=== PATIENT | female | born 1940 | race Caucasian/White ===

== ENCOUNTER 2016-12-19 08:27 | Inpatient (IN) | payer MEDICAID, MEDICARE, OTHER ==
[~2016-12-19] VITALS: Ht 167.6 cm; Wt 82.1 kg
[2016-12-19 08:30] VITALS: Ht 167.6 cm; Wt 82.1 kg
[2016-12-19] MEDS ORDERED: ASPIRIN 325 MG TAB PO STA (08:45)
[2016-12-19] MEDS ORDERED: SOD CHLORIDE 0.9% 500 ML IV STA (08:45)
[2016-12-19] MEDS ORDERED: DILTIAZEM 25 MG INJ IV ONE (09:00)
[2016-12-19 09:08] VITALS: TEMP 98.5
[2016-12-19] MEDS ORDERED: SOD CHLORIDE 0.9% 1,000 ML IV STA (09:09)
--- NOTE | 2016-12-19 09:26 | RADRPT ---
PROCEDURE: XR Chest. CLINICAL INDICATION: Chest Pain. TECHNIQUE: Single portable view of the chest was obtained. COMPARISON: None. FINDINGS: The heart is moderately enlarged. There is bilateral lower lobe scar and/or discoid atelectasis. No evidence of CHF, consolidation ple ural effusion, or pneumothorax. There are senescent osseous changes. IMPRESSION: 1. Moderately severe cardiomegaly. 2. Bilateral lower lobe scar and/or discoid atelectasis. 3. Senescent osseous changes. Physician Kenneth Date Time Electronically viewed and signed by Nohemi Ly Physician on 12/19/2016 09:26 RR/
[2016-12-19 09:29] LABS: BASOPHILS % 0.5 % (0.0-2.0); EOSINOPHILS # 0.1 10^3/ul (0.0-0.5); EOSINOPHILS % 1.3 % (0.0-7.0); HEMOGLOBIN 10.9 g/dl (12.0-16.0); LYMPHOCYTES % 15.8 % (15.0-51.0); MEAN CORPUSCULAR HEMOGLOBIN 28.2 pg (29.0-33.0); MEAN CORPUSCULAR VOLUME 85.3 fl (82.0-101.0); MEAN PLATELET VOLUME 10.5 fl (7.4-10.4); MONOCYTE # 0.3 10^3/ul (0.3-0.9); MONOCYTES % 4.5 % (0.0-11.0); NEUTROPHIL # 4.9 10^3/ul (1.6-7.5); NEUTROPHILS % 77.6 % (39.0-77.0); PLATELET COUNT 298 10^3/UL (140-415); RED BLOOD COUNT 3.87 10^6/ul (4.20-5.40); RED CELL DISTRIBUTION WIDTH 14.4 % (11.5-14.5); WHITE BLOOD COUNT 6.3 10^3/ul (4.8-10.8)
[2016-12-19 09:39] LABS: INR 1.09; PROTIME 14.1 Sec (12.2-14.2); PT RATIO 1.1
[2016-12-19 09:40] LABS: PARTIAL THROMBOPLASTIN TIME 29.7 Sec (25.0-35.0)
[2016-12-19 09:41] LABS: ANION GAP 12 (8-16); BLOOD UREA NITROGEN 9 mg/dl (7-20); CALCIUM 9.1 mg/dl (8.4-10.2); CARBON DIOXIDE 28 mmol/L (21-31); CHLORIDE 100 mmol/L (97-110); CREATININE 0.68 mg/dl (0.44-1.00); GLUCOSE 184 mg/dl (70-220); POTASSIUM 3.9 mmol/L (3.5-5.1); SODIUM 136 mmol/L (135-144)
[2016-12-19 09:54] LABS: TROPONIN-I < 0.012 ng/ml (0.00-0.12)
[2016-12-19] MEDS ORDERED: IODIXANOL LOCM 100 ML BTL ONE (10:10)
[2016-12-19] MEDS ORDERED: SOD CHLORIDE 0.9% 100 ML ONE (10:10)
[2016-12-19] MEDS ORDERED: AMLO5TAB4 PO (10:28)
[2016-12-19] MEDS ORDERED: GLIP5TAB13 PO (10:29)
[2016-12-19] MEDS ORDERED: BENA40TA41 PO (10:29)
[2016-12-19] MEDS ORDERED: METF-480 PO (10:30)
[2016-12-19] MEDS ORDERED: GABA300C16 PO (10:30)
[2016-12-19] MEDS ORDERED: MELO-216 PO (10:30)
[2016-12-19] MEDS ORDERED: CALC500T91 PO (10:38)
--- NOTE | 2016-12-19 10:44 | RADRPT ---
PROCEDURE: CTA Chest and pulmonary angiogram. CLINICAL INDICATION: Chest pain and lower extremity swelling TECHNIQUE: CT scan of the chest and CT pulmonary angiogram was performed on a multidetector high-r Sponduuolution CT scanner. High-resolution thin slice coronal and sagittal imaging was obtained from the axial source images. 3-D volumetric rendered post processing was performed as well. The patient w as examined following the uncomplicated intravenous administration of 100 cc of Visipaque 320. The i mages were reviewed on a PACS workstation. The total exam CTDI equals 78 mGy, and the total exam DLP equals 626 mGy-cm. One or more of the following dose reduction techniques were used: Automated exposure control. Adjustment of the mA and/or kV according to patient size. Use of iterative reconstruction technique. DICOM images are available. COMPARISON: No priors for comparison. FINDINGS: CT chest: The trachea is midline. Calcification is noted within the left thyroid lobe. No significant axillary lymphadenopathy. No significant mediastinal lymphadenopathy. No gross hilar lymphadenopathy. The aorta demonstrates mild atherosclerotic calcifications. The pulmonary arterial trunk is dilated measuring up to 3.0 cm. No gross evidence of abnormal filling defects within the main pulmonary taylor ry and its segmental branches. Heart size is enlarged. There is trace pericardial effusion. Bilateral ground-glass opacities are scattered throughout both lungs. There is bilateral lower lobe atelectasis and small right pleural effusion. The visualized upper abdominal organs demonstrates mild perihepatic fluid and perisplenic fluid. The re is a small hiatal hernia. The visualized osseous structures demonstrate multilevel degenerative disease of the spine. Chronic compression deformity of T12 is noted. IMPRESSION: 1. No evidence of acute pulmonary emboli. No evidence of aortic aneurysm or dissection. Scattered at herosclerotic disease of the aorta. 2. Cardiomegaly and pulmonary arterial hypertension. 3. Scattered bilateral ground-glass opacities suggestive of mild edema versus air trapping. 4. Bilateral lower lobe atelectasis and small right pleural effusion. 5. 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 6. Small hiatal hernia. RPTAT: AAPP Physician Joe Date Time Electronically viewed and signed by Physician Joe on 12/19/2016 10:44 JL/
[2016-12-19] MEDS ORDERED: SOD CHLORIDE 0.9% 1,000 ML IV SCH (11:17)
--- NOTE | 2016-12-19 11:23 | ERD ---
ER Documentation Chief Complaint Chief Complaint chest "pressure" that radiates to back with bilat leg pain/swellingx 4 days HPI This is a 75-year-old female who presents to the emergency room for evaluation of chest pain, palpitations and mild shortness of breath for the past 4 days. The patient describes her symptoms as being constant in nature with no aggravating or relieving factors. This patient denies any nausea, vomiting, diaphoresis and rates her discomfort as a 2/10 currently ROS All systems reviewed and are negative except as per history of present illness. Medications Home Meds Reported Medications Calcium Carbonate ([id number]) 500 Mg Tablet, 500 MG PO BID, TAB 12/19/16 Meloxicam* (Meloxicam*) 7.5 Mg Tablet, 15 MG PO DAILY, #30 TAB 12/19/16 Metformin* (Glucophage*) 850 Mg Tablet, 850 MG PO WITH MEALS, #90 TAB 12/19/16 Gabapentin* (Gabapentin*) 300 Mg Capsule, 300 MG PO QHS, #60 CAP 12/19/16 Glipizide* (Glipizide*) 5 Mg Tablet, 5 MG PO DAILY, TAB 12/19/16 Benazepril Hcl* (Benazepril Hcl*) 40 Mg Tablet, 40 MG PO DAILY, #30 TAB 12/19/16 Amlodipine Besylate* (Norvasc*) 5 Mg Tablet, 5 MG PO DAILY, TAB 12/19/16 Allergies Allergies: Coded Allergies: No Known Allergy (Verified Allergy, Unknown, 11/01/08) PMhx/Soc Hx Alcohol Use: No Hx Substance Use: No Hx Tobacco Use: No Smoking Status: Never smoker Physical Exam Vitals Vital Signs Date Time Temp Pulse Resp B/P Pulse Ox O2 Delivery O2 Flow Rate FiO2 12/19/16 09:08 98.5 106 18 108/75 96 Room Air 12/19/16 08:30 97.6 125 20 145/78 98 Physical Exam INITIAL VITAL SIGNS: Reviewed by me GENERAL: The patient is well developed and appropriate for usual state of health in no apparent distress HEENT: Pupils equal, round, and reactive to light. EOMI. There is no scleral icterus. NECK: C-spine is soft and supple, there is no meningismus. There is no cervical lymphadenopathy. LUNGS: Clear to auscultation bilaterally. There are no rales, wheezes or rhonchi. HEART: Irregularly irregular rhythm no murmurs, clicks, rubs or gallops. ABDOMEN: Soft, non-tender, non-distended. There are bowel sounds in all four quadrants. No rebound or guarding. EXTREMITIES: There is no peripheral cyanosis or edema. No focal swelling or erythema. NEUROLOGICAL: The patient moves all four extremities with 5/5 strength. Cranial nerves II - XII are intact. Normal gait. Alert and oriented SKIN: There is no apparent rash or petechiae. HEME/LYMPHATIC: There is no evidence of excessive bruising or lymphedema. PSYCHIATRIC: The patient does not appear anxious or depressed. Result Diagram: 12/19/16 0857 12/19/16 0857 Results 24 hrs Laboratory Tests Test 12/19/16 08:57 White Blood Count 6.310^3/ul Red Blood Count 3.8710^6/ul Hemoglobin 10.9g/dl Hematocrit 33.0% Mean Corpuscular Volume 85.3fl Mean Corpuscular Hemoglobin 28.2pg Mean Corpuscular Hemoglobin Concent 33.0g/dl Red Cell Distribution Width 14.4% Platelet Count 83450^3/UL Mean Platelet Volume 10.5fl Neutrophils % 77.6% Lymphocytes % 15.8% Monocytes % 4.5% Eosinophils % 1.3% Basophils % 0.5% Nucleated Red Blood Cells % 0.0/100WBC Neutrophils # 4.910^3/ul Lymphocytes # 1.010^3/ul Monocytes # 0.310^3/ul Eosinophils # 0.110^3/ul Basophils # 0.010^3/ul Nucleated Red Blood Cells # 0.010^3/ul Prothrombin Time 14.1Sec Prothrombin Time Ratio 1.1 INR International Normalized Ratio 1.09 Activated Partial Thromboplast Time 29.7Sec Sodium Level 136mmol/L Potassium Level 3.9mmol/L Chloride Level 100mmol/L Carbon Dioxide Level 28mmol/L Anion Gap 12 Blood Urea Nitrogen 9mg/dl Creatinine 0.68mg/dl Glucose Level 184mg/dl Calcium Level 9.1mg/dl Troponin I < 0.012ng/ml Current Medications Medications (Trade) Dose Ordered Sig/Bk Route PRN Reason Start Time Stop Time Status Last Admin Dose Admin Sodium Chloride (NS) 500 ml @ 500 mls/hr Q1H STAT IV 12/19/16 08:45 12/19/16 10:05 DC 12/19/16 09:07 Aspirin (Aspirin) 325 mg ONCE STAT PO 12/19/16 08:45 12/19/16 08:46 DC 12/19/16 09:08 Diltiazem HCl 10 mg 10 mg ONCE ONCE IV 12/19/16 09:00 12/19/16 09:01 DC 12/19/16 09:08 Sodium Chloride (NS) 1,000 ml @ 1,000 mls/hr Q1H STAT IV 12/19/16 09:09 12/19/16 09:12 DC IV Flush 10 ml 10 ml STK-MED ONCE .ROUTE 12/19/16 10:10 12/19/16 10:11 DC 12/19/16 10:37 Sodium Chloride (NS) 100 ml @ ud STK-MED ONCE .ROUTE 12/19/16 10:10 12/19/16 10:11 DC 12/19/16 10:37 Iodixanol 100 ml 100 ml STK-MED ONCE .ROUTE 12/19/16 10:10 12/19/16 10:11 DC 12/19/16 10:37 Sodium Chloride (NS) 1,000 ml @ 80 mls/hr [id number] IV 12/19/16 11:17 12/19/16 23:46 Ondansetron HCl (Zofran Inj) 4 mg ER BRIDGE PRN IV NAUSEA AND/OR VOMITING 12/19/16 11:30 12/20/16 11:29 Acetaminophen (Tylenol Tab) 650 mg ER BRIDGE PRN PO MILD PAIN/FEVER 12/19/16 11:30 12/20/16 11:29 Procedures/MDM EKG: Rate/Rhythm: A. fib with RVR QRS, ST, T-waves: [No changes consistent w/ acute ischemia] Impression: A. fib with RVR EKG: Rate/Rhythm: Atrial fibrillation QRS, ST, T-waves: [No changes consistent w/ acute ischemia] Impression: Atrial fibrillation Chest X-ray 1V Interpreted by me: Soft Tissue: No acute abnormalities Bones: No acute abnormalities Mediastinum/Cardiac Silhouette/Lungs: [No acute abnormalities] CTA chest with: 1. No evidence of acute pulmonary emboli. No evidence of aortic aneurysm or dissection. Scattered atherosclerotic disease of the aorta. 2. Cardiomegaly and pulmonary arterial hypertension. 3. Scattered bilateral ground-glass opacities suggestive of mild edema versus air trapping. 4. Bilateral lower lobe atelectasis and small right pleural effusion. 5. 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 6. Small hiatal hernia. This is a 75-year-old female presents to the ER for evaluation of palpitations, mild shortness of breath. When I evaluated this patient she was in A. fib with RVR. The patient was not hypoxic, she was hemodynamically stable. The patient underwent lab work and was given 10 mg of Cardizem after a fluid bolus was given which did not resolve her symptoms. This patient has no previous history of atrial fibrillation, she was given aspirin in the emergency room and given her age and her symptoms of atrial fibrillation the patient will be admitted to the telemetry floor at this time under the care of Dr. flannery. After 10 mg Cardizem bolus this patient's heart rate is 69 bpm. Critical Care: Excluding all billable procedures Time: 38 minutes Treatments/Evaluations: Close monitoring and treatment of unstable vital signs, cardiorespiratory, and neurologic status, while maintaining tight balance of fluid, respiratory, and cardiac interventions. Departure Diagnosis: Primary Impression: Atrial fibrillation with RVR Additional Impressions: Chest pain Normocytic anemia Condition: Stable CHRISTEL HURTADO DO Dec 19, 2016 11:23
[2016-12-19] MEDS ORDERED: ACETAMINOPHEN 325 MG TAB PO PRN (11:30)
[2016-12-19] MEDS ORDERED: ONDANSETRON 4 MG INJ IV PRN (11:30)
[2016-12-19] MEDS ORDERED: FUROSEMIDE 20 MG INJ IV ONE (12:00)
[2016-12-19] MEDS ORDERED: NACL 0.9% 3 ML SYG IV SCH (12:00)
[2016-12-19] MEDS: METOPROLOL 25 MG TAB PO SCH ×2 (12:56→20:11)
[2016-12-19 14:46] VITALS: BMI 29.2
[2016-12-19 14:48] VITALS: BP 115/66; PULSE 60; RESP 18
[2016-12-19 15:57] LABS: CREATINE KINASE 45 IU/L (23-200)
[2016-12-19 16:00] VITALS: PULSE 96
[2016-12-19] MEDS ORDERED: HYDROCODONE/APAP (5/325) TAB PO PRN (16:00)
[2016-12-19 16:10] LABS: CK-MB 1.42 ng/ml (0.0-2.4)
[2016-12-19 16:11] LABS: TROPONIN-I < 0.012 ng/ml (0.00-0.12)
[2016-12-19 16:21] VITALS: BP 123/80; PULSE 97; RESP 18
--- NOTE | 2016-12-19 17:26 | HP ---
Date/Time of Note Date/Time of Note DATE: 12/19/16 TIME: 17:20 Assessment/Plan VTE Prophylaxis VTE Prophylaxis Intervention: other Lines/Catheters IV [facility] Peripheral IV Urinary Cath still in place: No Assessment/Plan Chief Complaint/Hosp Course 75 yo femlae wtih hypertension and DMII who presents with new onset Atrial Fibrillation and acute decompensated CHF Acute decompensated CHF: - Start diuresis w lasix IV 20 BID - TTE - Start beta mu A Fib: - Rate reasonably controlled, continue metropolol - Rates will come down w diuresis and relief of pulmonary congestion - Start Xarelto Telemetry monitoring Problems: HPI/ROS Admit Date/Time Admit Date/Time Dec 19, 2016 at 11:19 Hx of Present Illness 75 yo female with h/o hypertension and mild DMII who presents wiht a few days of progressive chest tighteness, abdominal bloating, SOB. No fevers, chills or night sweats. Does not have any exertional chest pain, does have some mild chest "tightness" that is constant. In ED, found to be in A Fib with HR 120s, given IV diltiazem and fluids PMH/Family/Social Past Medical History Medical History: high cholesterol, hypertension Past Surgical History Past Surgical Hx: no surgical history Social History Alcohol Use: none Smoking Status: Never smoker Drug Use: none Exam/Review of Systems Vital Signs Vitals Vital Signs Date Time Temp Pulse Resp B/P Pulse Ox O2 Delivery O2 Flow Rate FiO2 12/19/16 16:21 98.2 97 18 123/80 95 Room Air Exam Exam +++ JVD Clear lungs, comfortable respiratory status Constitutional: alert, oriented, well developed Psych: nl mood/affect, no complaints Head: atraumatic, normocephalic Eyes: EOMI, PERRL, nl conjunctiva, nl lids, nl sclera ENMT: nl external ears & nose, nl lips & teeth, nl nasal mucosa & septum Neck: non-tender, supple Respiratory: clear to auscultation, normal air movement Cardiovascular: nl pulses, regular rate and rhythm Gastrointestinal: nl liver, spleen, non-tender, soft Musculoskeletal: nl extremities to inspection Extremities: normal pulses Neurological: [employer] II-XII intact, nl mental status, nl speech, nl strength Skin: nl turgor, No rash or lesions Lymph: nl lymph nodes Labs Result Diagram: 12/19/16 0857 12/19/16 0857 Medications Medications Current Medications Metoprolol Tartrate (Lopressor) 25 mg BID PO Last administered on 12/19/16t 12 :56; Admin Dose 25 MG; Start 12/19/16 at 12:00 Acetaminophen/ Hydrocodone Bitart ([place] (5/325)) 1 tab Q6H PRN PO PAIN 4-6; Start 12/19/16 at 16:00 CRISTOBAL DYKES MD Dec 19, 2016 17:26
[2016-12-19] MEDS: FUROSEMIDE 20 MG INJ IV SCH (18:28)
[2016-12-19] MEDS: RIVAROXABAN 20 MG TABLET PO SCH (19:21)
[2016-12-19 20:09] VITALS: BP 128/77; PULSE 108; RESP 18
[2016-12-19 21:40] LABS: CREATINE KINASE 45 IU/L (23-200)
[2016-12-19 21:54] LABS: CK-MB 1.39 ng/ml (0.0-2.4); TROPONIN-I < 0.012 ng/ml (0.00-0.12)
[2016-12-19 23:41] VITALS: BP 135/78; RESP 18
[2016-12-20] VITALS (11 sets, daily range): BP systolic 122–137; BP diastolic 71–88; PULSE 61–121; RESP 18–19
[2016-12-20] MEDS: FUROSEMIDE 20 MG INJ IV SCH ×2 (05:34→16:06)
[2016-12-20 07:39] LABS: BASOPHILS % 0.7 % (0.0-2.0); EOSINOPHILS # 0.1 10^3/ul (0.0-0.5); EOSINOPHILS % 2.1 % (0.0-7.0); HEMATOCRIT 33.1 % (37.0-47.0); LYMPHOCYTES # 1.2 10^3/ul (0.8-2.9); LYMPHOCYTES % 22.6 % (15.0-51.0); MEAN CORPUSCULAR HEMOGLOBIN 28.6 pg (29.0-33.0); MEAN CORPUSCULAR HGB CONC 33.2 g/dl (32.0-37.0); MEAN PLATELET VOLUME 10.6 fl (7.4-10.4); MONOCYTE # 0.4 10^3/ul (0.3-0.9); MONOCYTES % 7.1 % (0.0-11.0); NEUTROPHIL # 3.6 10^3/ul (1.6-7.5); NEUTROPHILS % 67.1 % (39.0-77.0); PLATELET COUNT 302 10^3/UL (140-415); RED BLOOD COUNT 3.85 10^6/ul (4.20-5.40); RED CELL DISTRIBUTION WIDTH 14.2 % (11.5-14.5); WHITE BLOOD COUNT 5.4 10^3/ul (4.8-10.8)
[2016-12-20] MEDS: METOPROLOL 25 MG TAB PO SCH (07:53)
[2016-12-20 08:04] LABS: ALBUMIN 3.7 g/dl (3.3-4.9); ALBUMIN/GLOBULIN RATIO 1.15; BILIRUBIN,INDIRECT 0.2 mg/dl (0-1.1); BILIRUBIN,TOTAL 0.2 mg/dl (0.2-1.3); CALCIUM 8.9 mg/dl (8.4-10.2); CHOL/HDL RATIO 2.6 RATIO; CREATININE 0.83 mg/dl (0.44-1.00); POTASSIUM 4.1 mmol/L (3.5-5.1); TOTAL PROTEIN 6.9 g/dl (6.1-8.1)
[2016-12-20] MEDS ORDERED: GLUCOSE GEL 15 GRAM TUBE PO PRN ×2 (10:00)
[2016-12-20] MEDS ORDERED: DEXTROSE 50% 50 ML SYRINGE IV PRN ×2 (10:00)
[2016-12-20] MEDS ORDERED: GLUCAGON 1 MG INJ IM PRN (10:00)
[2016-12-20] MEDS ORDERED: GLUCOSE GEL 15 GRAM TUBE BUCCAL PRN (10:00)
[2016-12-20] MEDS ORDERED: METOPROLOL 25 MG TAB PO STA (10:48)
[2016-12-20 11:32] LABS: T3 UPTAKE 40.5 % (23.5-40.5)
[2016-12-20] MEDS: INSULIN ASPART [NOVOLOG] 3 ML PEN SC SCH ×5 (11:35→21:00)
--- NOTE | 2016-12-20 14:33 | RADRPT ---
Echocardiogram Report Patient Name: LASHAWN DAVE Gender: Female Date: 1940 Study Date: 19-Dec-2016 Manager Environmental Health: Pao Benítez RDCS Location: [facility] Ref. Physician: CRISTOBAL DYKES Quality: Adequate Procedures: Transthoracic echocardiogram with complete 2D, M-Mode, and doppler examination. Indications: Atrial Fibrillation. Congestive Heart Failure. 2D/M Mode Doppler Measurement Value Normal Ranges Measurement Value Normal Ranges LVIDd 2D 5.2 3.5 - 5.6 cm AV Peak Cj 1.5 m/sec LVIDs 2D 2.7 2.1 - 4.1 cm AV Peak PG 9.5 mmHg LVPWd 2D 1.2 0.6 - 1.1 cm TR Peak Cj 3.4 m/sec IVSd 2D 1.0 0.6 - 1.1 cm TR Peak PG 46.0 mmHg AoR Diam 2D 2.7 2.0 - 3.7 cm RVSP 61.0 mmHg EDV 2D 130.3 cm3 ESV 2D 19.3 cm3 LA Dimen 2D 4.5 2.3 - 4.0 cm Findings Left Ventricle: Lower limits of normal systolic function. Normal left ventricular cavity size. Mild concentric left ventricular hypertrophy. Ejection fraction is visually estimated at 50 %. Tissue Doppler/Mitral Doppler indices are indeterminate in this study due to the presence of atrial fibrillation. Right Ventricle: Normal right ventricular size. Normal right ventricular systolic function. Left Atrium: There is moderate enlargement of left atrium. Right Atrium: There is moderate enlargement of right atrium. Atrial Septum: Thin and hypermobile atrial septum. Mitral Valve: Moderate mitral leaflet calcification. Mild mitral annular calcification. Mild mitral valve regurgitation. Aortic Valve: No significant aortic stenosis or insufficiency. Aortic cusps appear mildly calcified. Tricuspid Valve: Normal appearance of the tricuspid valve. Estimated peak PA systolic pressure 61 mmHg. There is moderate tricuspid regurgitation. Pulmonic Valve: Pulmonic valve not well visualized. Pericardium: Trivial pericardial effusion. Aorta: Normal aortic root. IVC: Dilated IVC without respiratory collapse consistent with elevated right atrial pressure. Conclusions 1.Lower limits of normal systolic function. Normal left ventricular cavity size. Mild concentric left ventricular hypertrophy. Ejection fraction is visually estimated at 50 %. Tissue Doppler/Mitral Doppler indices are indeterminate in this study due to the presence of atrial fibrillation. 2.There is moderate enlargement of left atrium. 3.There is moderate enlargement of right atrium. 4.Moderate mitral leaflet calcification. Mild mitral annular calcification. Mild mitral valve regurgitation. 5.Normal appearance of the tricuspid valve. Estimated peak PA systolic pressure 61 mmHg. There is moderate tricuspid regurgitation. 6.Trivial to small pericardial effusion. Electronically Signed By: Margarito Malloy 20-Dec-2016 14:33:11 -0800 Patient Name: LASHAWN DAVE Study Date: 19-Dec-2016 [id number]
--- NOTE | 2016-12-20 15:11 | PN ---
Date/Time of Note Date/Time of Note DATE: 12/20/16 TIME: 15:07 Assessment/Plan VTE Prophylaxis VTE Prophylaxis Intervention: other Lines/Catheters IV Catheter Type (from Nrs): Saline Lock Urinary Cath still in place: No Assessment/Plan Chief Complaint/Hosp Course 75 yo femlae wtih hypertension and DMII who presents with new onset Atrial Fibrillation and acute decompensated CHF Acute decompensated diastolic CHF: - Continue diuresis w lasix IV 20 BID - On TTE has normal EF, biatrial enlargement A Fib: - Rate reasonably controlled but will increase metropolol to 50 BID from 25 BID - Rates should come down w diuresis and relief of pulmonary congestion - AC w Xarelto DMII with hyperglycemia: - Started on basal/bolus insulin therapy Telemetry monitoring Problems: Subjective 24 Hr Interval Summary Free Text/Dictation Very good diuresis Feeling a lot better today she says Still hypervolemic though HR 90-110 generally on telemetry Exam/Review of Systems Vital Signs Vitals Vital Signs Date Time Temp Pulse Resp B/P Pulse Ox O2 Delivery O2 Flow Rate FiO2 12/20/16 12:14 98 12/20/16 11:45 97.7 18 123/80 95 12/19/16 20:09 Room Air Intake and Output 12/19/16 12/19/16 12/20/16 15:00 23:00 07:00 Intake Total 350 ml 100 ml Balance 350 ml 100 ml Exam ++ JVD Results Result Diagram: 12/20/1627 12/20/16 0628 Results 24 hrs Laboratory Tests Test 12/19/16 15:19 12/19/16 20:58 12/20/16 06:27 12/20/16 06:28 Creatine Kinase 45 45 Creatine Kinase Index 3.2 3.1 Creatinine Kinase MB (Mass) 1.42 1.39 Troponin I < 0.012 < 0.012 White Blood Count 5.4 Red Blood Count 3.85 L Hemoglobin 11.0 L Hematocrit 33.1 L Mean Corpuscular Volume 86.0 Mean Corpuscular Hemoglobin 28.6 L Mean Corpuscular Hemoglobin Concent 33.2 Red Cell Distribution Width 14.2 Platelet Count 302 Mean Platelet Volume 10.6 H Neutrophils % 67.1 Lymphocytes % 22.6 Monocytes % 7.1 Eosinophils % 2.1 Basophils % 0.7 Nucleated Red Blood Cells % 0.0 Neutrophils # 3.6 Lymphocytes # 1.2 Monocytes # 0.4 Eosinophils # 0.1 Basophils # 0.0 Nucleated Red Blood Cells # 0.0 Hemoglobin A1c 8.6 H Sodium Level 137 Potassium Level 4.1 Chloride Level 97 Carbon Dioxide Level 30 Anion Gap 14 Blood Urea Nitrogen 11 Creatinine 0.83 Glucose Level 197 Calcium Level 8.9 Total Bilirubin 0.2 Direct Bilirubin 0.00 Indirect Bilirubin 0.2 Aspartate Amino Transf (AST/SGOT) 22 Alanine Aminotransferase (ALT/SGPT) 29 Alkaline Phosphatase 77 Total Protein 6.9 Albumin 3.7 Globulin 3.20 Albumin/Globulin Ratio 1.15 Triglycerides Level 74 Cholesterol Level 102 LDL Cholesterol, Calculated 49 HDL Cholesterol 38 Cholesterol/HDL Ratio 2.6 Free Thyroxine Index 4.33 H Thyroxine (T4) 10.7 Triiodothyronine (T3) Uptake 40.5 Test 12/20/16 11:32 Bedside Glucose 251 H Medications Medications Current Medications Acetaminophen/ Hydrocodone Bitart ([place] (5/325)) 1 tab Q6H PRN PO PAIN 4-6; Start 12/19/16 at 16:00 Insulin Glargine (Lantus) 12 unit DAILY@08 SC ; Start 12/21/16 at 08:00 Diagnostic Test (Pha) (Accu-Chek) 1 ea 02 XX ; Start 12/21/16 at 02:00 Miscellaneous Information 1 ea NOTE XX ; Start 12/20/16 at 10:00 Glucose (Glutose) 15 gm Q15M PRN PO DECREASED GLUCOSE; Start 12/20/16 at 10:00 Glucose (Glutose) 22.5 gm Q15M PRN PO DECREASED GLUCOSE; Start 12/20/16 at 10: 00 Dextrose (D50w Syringe) 25 ml Q15M PRN IV DECREASED GLUCOSE; Start 12/20/16 at 10:00 Dextrose (D50w Syringe) 50 ml Q15M PRN IV DECREASED GLUCOSE; Start 12/20/16 at 10:00 Glucagon (Glucagen) 1 mg Q15M PRN IM DECREASED GLUCOSE; Start 12/20/16 at 10: 00 Glucose (Glutose) 15 gm Q15M PRN BUCCAL DECREASED GLUCOSE; Start 12/20/16 at 10:00 Metoprolol Tartrate (Lopressor) 50 mg BID PO ; Start 12/20/16 at 21:00 CRISTOBAL DYKES MD Dec 20, 2016 15:11
[2016-12-20] MEDS: RIVAROXABAN 20 MG TABLET PO SCH (16:06)
[2016-12-20] MEDS: METOPROLOL 50 MG TAB PO SCH (21:38)
[2016-12-21] VITALS (8 sets, daily range): BP systolic 118–139; BP diastolic 66–74; PULSE 82–101; RESP 18–19
[2016-12-21] MEDS ORDERED: ACCU-CHEK XX SCH ×2 (02:00)
[2016-12-21] MEDS: FUROSEMIDE 20 MG INJ IV SCH (05:39)
[2016-12-21] MEDS ORDERED: INSULIN GLARGINE [LANtus] 3 ML PEN SC SCH (08:00)
[2016-12-21 08:40] LABS: BASOPHILS % 0.6 % (0.0-2.0); EOSINOPHILS # 0.1 10^3/ul (0.0-0.5); EOSINOPHILS % 1.9 % (0.0-7.0); HEMATOCRIT 33.3 % (37.0-47.0); HEMOGLOBIN 11.1 g/dl (12.0-16.0); LYMPHOCYTES # 1.1 10^3/ul (0.8-2.9); LYMPHOCYTES % 21.7 % (15.0-51.0); MEAN CORPUSCULAR HEMOGLOBIN 28.1 pg (29.0-33.0); MEAN CORPUSCULAR HGB CONC 33.3 g/dl (32.0-37.0); MEAN CORPUSCULAR VOLUME 84.3 fl (82.0-101.0); MEAN PLATELET VOLUME 10.3 fl (7.4-10.4); MONOCYTE # 0.3 10^3/ul (0.3-0.9); MONOCYTES % 5.4 % (0.0-11.0); NEUTROPHIL # 3.7 10^3/ul (1.6-7.5); NEUTROPHILS % 70.2 % (39.0-77.0); PLATELET COUNT 308 10^3/UL (140-415); RED BLOOD COUNT 3.95 10^6/ul (4.20-5.40); RED CELL DISTRIBUTION WIDTH 13.6 % (11.5-14.5); WHITE BLOOD COUNT 5.2 10^3/ul (4.8-10.8)
[2016-12-21] MEDS: INSULIN ASPART [NOVOLOG] 3 ML PEN SC SCH ×2 (08:45)
[2016-12-21] MEDS: METOPROLOL 50 MG TAB PO SCH (08:55)
[2016-12-21 09:04] LABS: ALBUMIN 3.9 g/dl (3.3-4.9); ALBUMIN/GLOBULIN RATIO 1.11; BILIRUBIN,INDIRECT 0.3 mg/dl (0-1.1); BILIRUBIN,TOTAL 0.3 mg/dl (0.2-1.3); CREATININE 0.73 mg/dl (0.44-1.00); POTASSIUM 3.5 mmol/L (3.5-5.1); TOTAL PROTEIN 7.4 g/dl (6.1-8.1)
[2016-12-21] MEDS ORDERED: RIVA20TA PO (12:07)
[2016-12-21] MEDS ORDERED: METO-336 PO (12:07)
[2016-12-21] MEDS ORDERED: FURO20TA3 PO ×2 (12:08→12:17)
--- NOTE | 2016-12-21 12:13 | PDOCDIS ---
Discharge Instructions DIAGNOSIS Discharge Diagnosis Atrial fibrillation Congestive heart failure CONDITION Patient Condition: Good HOME CARE INSTRUCTIONS: Diet Instructions: Reduced Sodium FOLLOW UP/APPOINTMENTS Follow-up Plan Usted se lacy sido diagnosticado con dos condiciones: fibrilacion auricular y insuficiencia cardiaca. Es muy importante allie medicamento para prevenir coagulos de isaiah que se llama Xarelto Tambien es muy importante allie un diuretico para prevenir fluido en natalio pulmones Black doctor tiene que checar natalio laboratorios en la semana que viene. Temo josé miguel reginaldo con el Regresa al hospital si tiene falta de aire o cualquier otra simtoma CRISTOBAL DYKES MD Dec 21, 2016 12:13
--- NOTE | 2016-12-21 12:22 | DS ---
Date/Time of Note Date/Time of Note DATE: 12/21/16 TIME: 12:17 Discharge Summary Admission/Discharge Info Admit Date/Time Dec 19, 2016 at 11:19 Discharge Date/Time Discharge Diagnosis Atrial fibrillation Congestive heart failure Patient Condition: Good Hx of Present Illness 75 yo female with h/o hypertension and mild DMII who presents wiht a few days of progressive chest tighteness, abdominal bloating, SOB. No fevers, chills or night sweats. Does not have any exertional chest pain, does have some mild chest "tightness" that is constant. In ED, found to be in A Fib with HR 120s, given IV diltiazem and fluids Hospital Course 75 yo femlae wtih hypertension and DMII who presents with new onset Atrial Fibrillation and acute decompensated CHF Acute decompensated diastolic CHF: - Continue diuresis w lasix IV 20 BID - On TTE has normal EF, biatrial enlargement A Fib: - Rate reasonably controlled but will increase metropolol to 50 BID from 25 BID - Rates should come down w diuresis and relief of pulmonary congestion - AC w Xarelto DMII with hyperglycemia: - Started on basal/bolus insulin therapy Telemetry monitoring Patient presented in Atrial fibrillation with mildly elevated heart rates and mild CHF exacerbation. She was prescribed metroprolol for rate control, which was adequate. She underwent CT-A which was negative for PE but did show pulmonary edema. She underwent 2 days of diuresis with IV lasix to euvolemia and was breathing normally at time of discharge. TTE was performed showing normal EF, enlarged atria bilaterally. She was started on Xarelto for anticoagulation. She was discharged on 20 mg of PO lasix daily, which close instructions to monitor her weights and to check in with her primary care Dr Harris Hodge next week, whom I spoke with by phone and conveyed the details of the patient's admission. Home Meds Active Scripts Furosemide* (Furosemide*) 20 Mg Tablet, 20 MG PO DAILY, #60 TAB Prov:CRISTOBAL DYKES MD 12/21/16 Metoprolol Succinate* (Toprol XL*) 100 Mg Tab.sr.24h, 100 MG PO DAILY, #30 TAB Prov:MILGRCRISTOBAL OCAMPO MD 12/21/16 Rivaroxaban* (Xarelto*) 20 Mg Tablet, 20 MG PO WITH DINNER for 60 Days, #60 TAB 5 Refills Prov:MILGROM,CRISTOBAL K MD 12/21/16 Reported Medications Calcium Carbonate ([id number]) 500 Mg Tablet, 500 MG PO BID, TAB 12/19/16 Metformin* (Glucophage*) 850 Mg Tablet, 850 MG PO WITH MEALS, #90 TAB 12/19/16 Glipizide* (Glipizide*) 5 Mg Tablet, 5 MG PO DAILY, TAB 12/19/16 Benazepril Hcl* (Benazepril Hcl*) 40 Mg Tablet, 40 MG PO DAILY, #30 TAB 12/19/16 Discontinued Reported Medications Meloxicam* (Meloxicam*) 7.5 Mg Tablet, 15 MG PO DAILY, #30 TAB 12/19/16 Gabapentin* (Gabapentin*) 300 Mg Capsule, 300 MG PO QHS, #60 CAP 12/19/16 Amlodipine Besylate* (Norvasc*) 5 Mg Tablet, 5 MG PO DAILY, TAB 12/19/16 Follow-up Plan Usted se lacy sido diagnosticado con dos condiciones: fibrilacion auricular y insuficiencia cardiaca. Es muy importante allie medicamento para prevenir coagulos de isaiah que se llama Xarelto Tambien es muy importante allie un diuretico para prevenir fluido en natalio pulmones Black doctor tiene que checar natalio laboratorios en la semana que viene. Temo josé miguel reginaldo con el Regresa al hospital si tiene falta de aire o cualquier otra simtoma Primary Care Provider Donald Hodge Pending Labs Laboratory Tests Test 12/20/16 16:46 12/20/16 21:36 12/21/16 08:08 12/21/16 08:41 Bedside Glucose 108mg/dL (70-220) 102mg/dL (70-220) 189mg/dL (70-220) White Blood Count 5.210^3/ul (4.8-10.8) Red Blood Count 3.9510^6/ul (4.20-5.40) Hemoglobin 11.1g/dl (12.0-16.0) Hematocrit 33.3% (37.0-47.0) Mean Corpuscular Volume 84.3fl (82.0-101.0) Mean Corpuscular Hemoglobin 28.1pg (29.0-33.0) Mean Corpuscular Hemoglobin Concent 33.3g/dl (32.0-37.0) Red Cell Distribution Width 13.6% (11.5-14.5) Platelet Count 02505^3/UL (140-415) Mean Platelet Volume 10.3fl (7.4-10.4) Neutrophils % 70.2% (39.0-77.0) Lymphocytes % 21.7% (15.0-51.0) Monocytes % 5.4% (0.0-11.0) Eosinophils % 1.9% (0.0-7.0) Basophils % 0.6% (0.0-2.0) Nucleated Red Blood Cells % 0.0/100WBC (0.0-0.0) Neutrophils # 3.710^3/ul (1.6-7.5) Lymphocytes # 1.110^3/ul (0.8-2.9) Monocytes # 0.310^3/ul (0.3-0.9) Eosinophils # 0.110^3/ul (0.0-0.5) Basophils # 0.010^3/ul (0.0-0.1) Nucleated Red Blood Cells # 0.010^3/ul (0.0-0.0) Sodium Level 135mmol/L (135-144) Potassium Level 3.5mmol/L (3.5-5.1) Chloride Level 95mmol/L (97-110) Carbon Dioxide Level 27mmol/L (21-31) Anion Gap 17 (8-16) Blood Urea Nitrogen 12mg/dl (7-20) Creatinine 0.73mg/dl (0.44-1.00) Glucose Level 181mg/dl (70-220) Calcium Level 9.0mg/dl (8.4-10.2) Total Bilirubin 0.3mg/dl (0.2-1.3) Direct Bilirubin 0.00mg/dl (0.00-0.20) Indirect Bilirubin 0.3mg/dl (0-1.1) Aspartate Amino Transf (AST/SGOT) 27IU/L (15-46) Alanine Aminotransferase (ALT/SGPT) 29IU/L (13-69) Alkaline Phosphatase 81IU/L (42-121) Total Protein 7.4g/dl (6.1-8.1) Albumin 3.9g/dl (3.3-4.9) Globulin 3.50g/dl (1.3-3.2) Albumin/Globulin Ratio 1.11 CRISTOBAL DYKES MD Dec 21, 2016 12:22
== END 2016-12-21 14:32 | disposition home or self-care (01) | DRG 308 ==
LOC: E/R 08:27 → MS3 11:19 → MS4 22:15
PROVIDERS: ADMIT Internal Medicine; ATTEND Internal Medicine
DX: I48.91 Unspecified atrial fibrillation (principal); I50.33 Acute on chronic diastolic (congestive) heart failure; E13.65 Other specified diabetes mellitus with hyperglycemia; D64.9 Anemia, unspecified; I11.0 Hypertensive heart disease with heart failure
CPT/HCPCS: 36415; 71010; 71275; 80048; 80053; 80061; 82550; 82553; 82962; 83036; 84436; 84479; 84484; 85025; 85610; 85730; 93005; 93306; 96374; 96375; J1940; J1815; J7030; J7040; Q9967

== ENCOUNTER 2016-12-24 06:27 | Emergency (ER) | payer OTHER ==
[~2016-12-24] VITALS: Ht 154.9 cm; Wt 82.0 kg
[~2016-12-24 06:27] MED LIST: BENA40TA41 PO; CALC500T91 PO; FURO20TA3 PO; GLIP5TAB13 PO; METF-480 PO; METO-336 PO; RIVA20TA PO
[2016-12-24 06:28] VITALS: Ht 154.9 cm; Wt 82.0 kg
[2016-12-24] MEDS ORDERED: OFLO5DRO7 RIGHT EAR (06:53)
--- NOTE | 2016-12-24 07:00 | ERD ---
ER Documentation Chief Complaint Chief Complaint right ear bleeding;denies pain;able to hear; denies headeache and dizziness HPI 76-year-old female, history of atrial fibrillation comes to emergency department with right-sided ear bleeding that occurred spontaneously this morning while she was preparing food at home. Patient states that she is on Xarelto for atrial fibrillation was concerned because of the bleeding. She had a small pole of blood occurred, without any trauma, headache, nausea, dizziness , fevers or chills, otorrhea, ear pain. She states that she has a little bit of difficulty hearing at this time from the right ear only. ROS All systems reviewed and are negative except as per history of present illness. Medications Home Meds Active Scripts Ofloxacin Otic (Ofloxacin Otic) 5 Ml Drops, 5 DROP RIGHT EAR BID for 7 Days, #1 BOTTLE Prov:KRANTHI BARNETT PA-C 12/24/16 Furosemide* (Furosemide*) 20 Mg Tablet, 20 MG PO DAILY, #60 TAB Prov:CRISTOBAL DYKES MD 12/21/16 Metoprolol Succinate* (Toprol XL*) 100 Mg Tab.sr.24h, 100 MG PO DAILY, #30 TAB Prov:CRISTOBAL DYKES MD 12/21/16 Rivaroxaban* (Xarelto*) 20 Mg Tablet, 20 MG PO WITH DINNER for 60 Days, #60 TAB 5 Refills Prov:CRISTOBAL DYKES MD 12/21/16 Reported Medications Calcium Carbonate ([id number]) 500 Mg Tablet, 500 MG PO BID, TAB 12/19/16 Metformin* (Glucophage*) 850 Mg Tablet, 850 MG PO WITH MEALS, #90 TAB 12/19/16 Glipizide* (Glipizide*) 5 Mg Tablet, 5 MG PO DAILY, TAB 12/19/16 Benazepril Hcl* (Benazepril Hcl*) 40 Mg Tablet, 40 MG PO DAILY, #30 TAB 12/19/16 Discontinued Reported Medications Meloxicam* (Meloxicam*) 7.5 Mg Tablet, 15 MG PO DAILY, #30 TAB 12/19/16 Gabapentin* (Gabapentin*) 300 Mg Capsule, 300 MG PO QHS, #60 CAP 12/19/16 Amlodipine Besylate* (Norvasc*) 5 Mg Tablet, 5 MG PO DAILY, TAB 12/19/16 Allergies Allergies: Coded Allergies: No Known Allergy (Verified Allergy, Unknown, 11/01/08) PMhx/Soc History of Surgery: No Anesthesia Reaction: No Hx Neurological Disorder: No Hx Respiratory Disorders: No Hx Cardiac Disorders: Yes (afib) Hx Psychiatric Problems: No Hx Miscellaneous Medical Probl: Yes (DM) Hx Alcohol Use: No Hx Substance Use: No Hx Tobacco Use: No Smoking Status: Never smoker Physical Exam Vitals Vital Signs Date Time Temp Pulse Resp B/P Pulse Ox O2 Delivery O2 Flow Rate FiO2 12/24/16 06:28 98.6 120 19 146/75 100 Physical Exam General: Well-developed, well-nourished. The patient appears in no acute distress. HEENT: Head is normocephalic, atraumatic. No scleral icterus. Rupture of the TM, there is a small amount of blood in the ear canal, there is no active hemorrhage, no foreign body, no otorrhea, no discharge. Left ear is normal. Neck: Supple. Nontender. Lungs: Clear to auscultation. Normal air movement. Heart: Regular rate and rhythm. S1 and S2 are normal. No murmurs, gallops, or rubs. Abdomen: Nondistended. Extremities: No clubbing or cyanosis. Moving extremities x 4. No weakness. Neurologic: Alert and oriented 3. No focal deficits. Normal speech and gait. Skin: Normal turgor. No rash or lesions. Procedures/MDM 76-year-old female presents with right-sided spontaneous tympanic membrane perforation. There is no evidence of foreign body, infection, but she will be covered with otic drops. She is to follow-up with the ENT, she has an appointment with her PCP this Sunday of asked her to speak with them, she will be given information to Dr. Nair's office. I reviewed the case with my attending physician Dr. Lancaster who agrees with the plan. Patient's blood pressure was elevated (>120/80) but appears stable without evidence of hypertension emergency or urgency. The patient was counseled about the risks of hypertension and urged to pursue outpatient monitoring and therapy within a week with their primary care physician. Departure Diagnosis: Primary Impression: Tympanic membrane rupture Condition: Good Patient Instructions: Eardrum Rupture (Perforation) Referrals: FAMILIA NAIR MD Additional Instructions: ENT Specialist:Roberto grant josé miguel condicin mdica que requiere que cesario a un especialista dentro de los prximos 4-5 BRIDGES .POR FAVOR,CON [place] SEGUIMIENTO DE PRIMARIA PHSICIAN refferal. SI USTED NO TIENE UN MDICO GENERAL Y / O USTED NO PUEDE PAGAR umu a un mdico,los siguientes eli RECURSOS sido suministrado a usted. ES [place] RESPONSABILIDAD PARA SER VISTOS POR EL ESPECIALISTA: KRANTHI BARNETT PA-C Dec 24, 2016 07:00
== END 2016-12-24 07:15 | disposition home or self-care (01) ==
LOC: FTE 06:27
DX: H72.91 Unspecified perforation of tympanic membrane, right ear (principal); E11.9 Type 2 diabetes mellitus without complications; Z79.84 Long term (current) use of oral hypoglycemic drugs
CPT/HCPCS: 99283

== ENCOUNTER 2017-01-23 12:45 | Inpatient (IN) | payer OTHER ==
[~2017-01-23] VITALS: Ht 162.6 cm; Wt 85.4 kg
[~2017-01-23 12:45] MED LIST changes: +OFLO5DRO7 RIGHT EAR; -RIVA20TA PO; +RIVA20TA5 PO
[2017-01-23] MEDS ORDERED: ASPIRIN 325 MG TAB PO STA (13:07)
[2017-01-23 13:22] LABS: BASOPHIL # 0.1 10^3/ul (0.0-0.1); BASOPHILS % 0.8 % (0.0-2.0); EOSINOPHILS % 0.3 % (0.0-7.0); HEMOGLOBIN 10.4 g/dl (12.0-16.0); LYMPHOCYTES # 1.1 10^3/ul (0.8-2.9); LYMPHOCYTES % 18.2 % (15.0-51.0); MEAN CORPUSCULAR HEMOGLOBIN 27.2 pg (29.0-33.0); MEAN CORPUSCULAR HGB CONC 33.5 g/dl (32.0-37.0); MEAN CORPUSCULAR VOLUME 81.2 fl (82.0-101.0); MEAN PLATELET VOLUME 9.7 fl (7.4-10.4); MONOCYTE # 0.5 10^3/ul (0.3-0.9); MONOCYTES % 7.5 % (0.0-11.0); NEUTROPHIL # 4.4 10^3/ul (1.6-7.5); NEUTROPHILS % 72.9 % (39.0-77.0); PLATELET COUNT 336 10^3/UL (140-415); RED BLOOD COUNT 3.82 10^6/ul (4.20-5.40); RED CELL DISTRIBUTION WIDTH 13.5 % (11.5-14.5)
[2017-01-23] MEDS ORDERED: DILTIAZEM 25 MG INJ IV ONE (13:30)
[2017-01-23 13:40] LABS: ALANINE AMINOTRANSFERASE 29 IU/L (13-69); ALBUMIN/GLOBULIN RATIO 1.21; ALKALINE PHOSPHATASE 55 IU/L (42-121); ANION GAP 19 (8-16); ASPARTATE AMINO TRANSFERASE 33 IU/L (15-46); BILIRUBIN,INDIRECT 0.6 mg/dl (0-1.1); BILIRUBIN,TOTAL 0.6 mg/dl (0.2-1.3); BLOOD UREA NITROGEN 12 mg/dl (7-20); CALCIUM 8.6 mg/dl (8.4-10.2); CARBON DIOXIDE 23 mmol/L (21-31); CHLORIDE 95 mmol/L (97-110); GLUCOSE 177 mg/dl (70-220); POTASSIUM 3.8 mmol/L (3.5-5.1); SODIUM 133 mmol/L (135-144); TOTAL PROTEIN 7.3 g/dl (6.1-8.1)
--- NOTE | 2017-01-23 13:48 | RADRPT ---
PROCEDURE: Chest x-ray CLINICAL INDICATION: Chest pain TECHNIQUE: Chest single view COMPARISON: 12/19/2016 FINDINGS: There is stable moderate cardiomegaly and mild atherosclerotic aortic calcification. Pulmonary vesse ls are normal in caliber. There is small bilateral pleural effusions right greater than left with mi nimal lower lobe compressive atelectasis and volume loss and bony thorax is unremarkable IMPRESSION: 1. Stable moderate cardiomegaly and mild atherosclerotic aortic calcification. 2. Small bilateral pleural effusions with lower lobe compressive atelectasis RPTAT: HH .Rustam Michael MD, Date Time Electronically viewed and signed by .Rustam Michael MD, on 01/23/2017 13:48 .W/
[2017-01-23 13:52] LABS: B-TYPE NATRIURETIC PEPTIDE 1490 PG/ML (0-450)
[2017-01-23] MEDS ORDERED: AMLO-147 PO (13:53)
[2017-01-23] MEDS ORDERED: PRAV40TA76 PO (13:54)
[2017-01-23] MEDS ORDERED: ASPI81TA3 PO (13:56)
[2017-01-23] MEDS ORDERED: METO-336 PO (13:57)
[2017-01-23 14:04] LABS: INR 1.16; PT RATIO 1.2
[2017-01-23 14:12] LABS: TROPONIN-I < 0.012 ng/ml (0.00-0.12)
[2017-01-23] MEDS ORDERED: METOPROLOL 5 MG INJ IV ONE (15:00)
[2017-01-23] MEDS ORDERED: ONDANSETRON 4 MG INJ IV PRN ×2 (16:00→18:00)
[2017-01-23] MEDS ORDERED: ACETAMINOPHEN 325 MG TAB PO PRN ×2 (16:00→18:00)
[2017-01-23 16:57] VITALS: TEMP 98.3
--- NOTE | 2017-01-23 17:46 | HP ---
Date/Time of Note Date/Time of Note DATE: 01/23/17 TIME: 17:41 Assessment/Plan VTE Prophylaxis VTE Prophylaxis Intervention: other Lines/Catheters IV Catheter Type (from Nrs): Saline Lock Assessment/Plan Chief Complaint/Hosp Course Objective Physical exam General: Patient is laying in bed and answers questions appropriately Mentation: Patient is alert and oriented 4, Head: Normocephalic atraumatic Eyes: EOMI, pupils reactive to light Neck: Supple, nontender, midline Respiratory: Clear to auscultation bilaterally Cardiovascular: regular rate, no obvious murmurs Gastrointestinal: non-tender to palpation, bowel sounds heard. Neurological: Moves all extremities spontaneously Skin: 1+ pitting edema bilat LE Assessment and plan A. fib with RVR -Patient has a history of recently diagnosed A. fib, continue Xarelto and metoprolol, will consult cardiology -Echo pending -2 view chest x-ray pending -Questionable etiology, possible in need of medication optimization Acute on chronic systolic congestive heart failure -Repeat echo -Cardiology recommendations appreciated -BNP is elevated, IV Lasix for now, we will transition to p.o. in the next day or so Diabetes mellitus -Insulin sliding scale Dyslipidemia -Atorvastatin instead of pravastatin due to formulary Hypertension -Continue home medications CVA -Questionable true CVA, patient on aspirin and Eliquis, will hold aspirin for now continue Eliquis, cardiology recommendations appreciated Disposition -Pending cardiology consultation Problems: HPI/ROS Admit Date/Time Admit Date/Time Hx of Present Illness Patient is a 76-year-old female with past medical history of recently diagnosed atrial fibrillation with RVR and mild to moderate congestive heart failure and diabetes mellitus who presents to [facility] for a approximate 2 day history of generalized weakness. Patient states that she feels a mild tightness in her chest and occasional palpitations, however patient does not feel any symptoms at this time. Patient states that her lower extremity has been more swollen than usual despite taking all her medications and following up with her primary care provider on a normal basis. Patient states that she recently changed her primary care provider. Patient was originally sent to an urgent care who recommended admission into the hospital. Currently patient denies any shortness of breath, nausea, vomiting, diarrhea, headache, chest pain. PMH: Congestive heart failure, diabetes mellitus, paroxysmal A. fib, dyslipidemia, questionable CVA, hypertension PSH: None Social: Denies Meds: See med rec PMH/Family/Social Past Surgical History Past Surgical Hx: no surgical history Social History Smoking Status: Never smoker Exam/Review of Systems Vital Signs Vitals Vital Signs Date Time Temp Pulse Resp B/P Pulse Ox O2 Delivery O2 Flow Rate FiO2 01/23/17 16:57 98.3 73 18 112/71 100 Room Air Labs Result Diagram: 01/23/17 1313 01/23/17 1313 Medications Medications Current Medications Amlodipine Besylate (Norvasc) 10 mg DAILY PO ; Start 01/24/17 at 09:00; Status UNV Calcium Carbonate (Oyster Shell Calcium) 0.5 gm BID PO ; Start 01/23/17 at 21: 00; Status UNV Metoprolol Succinate (Toprol Xl) 100 mg DAILY PO ; Start 01/24/17 at 09:00; Status UNV Miscellaneous Information (* Miscellaneous Pharmacy Order) Discontinue current oral sulfonylur... ONCE ONCE XX ; Start 01/23/17 at 17:30; Stop 01/23/17 at 17:31; Status UNV Diagnostic Test (Pha) (Accu-Chek) 1 ea 02 XX ; Start 01/24/17 at 02:00; Status UNV Miscellaneous Information (* Miscellaneous Pharmacy Order) HYPOGLYCEMIA PROTOCOL w... ONCE ONCE XX ; Start 01/23/17 at 17:30; Stop 01/23/17 at 17:31 ; Status UNV Miscellaneous Information (* Miscellaneous Pharmacy Order) Discontinue all previ... ONCE ONCE XX ; Start 01/23/17 at 17:30; Stop 01/23/17 at 17:31; Status UNV Atorvastatin Calcium (Lipitor) 40 mg HS PO ; Start 01/23/17 at 21:00; Status UNV Lorazepam (Ativan) 0.5 mg Q8H PRN PO ANXIETY; Start 01/23/17 at 18:00; Status UNV Ondansetron HCl (Zofran Inj) 4 mg Q6H PRN IV NAUSEA AND/OR VOMITING; Start at 18:00; Status UNV Acetaminophen (Tylenol Tab) 650 mg Q6H PRN PO PAIN LEVEL 1-3 OR FEVER; Start 01/23/17 at 18:00; Status UNV Acetaminophen/ Hydrocodone Bitart ([place] (5/325)) 1 tab Q6H PRN PO PAIN LEVEL 4 -6; Start 01/23/17 at 18:00; Status UNV Morphine Sulfate (morphine) 2 mg Q4H PRN IV PAIN LEVEL 7-10; Start 01/23/17 at 18:00; Status UNV Bisacodyl (Dulcolax) 5 mg DAILY PRN PO CONSTIPATION; Start 01/23/17 at 18:00; Status UNV Pantoprazole (Protonix Tab) 40 mg DAILY@06 PO ; Start 01/24/17 at 06:00; Status UNV LISA BARNETT Jan 23, 2017 17:46
[2017-01-23] MEDS ORDERED: morphine LIQ (10 MG/5 ML) CUP PO PRN (18:00)
[2017-01-23] MEDS ORDERED: NACL 0.9% 3 ML SYG IV SCH (18:00)
[2017-01-23] MEDS ORDERED: HYDROCODONE/APAP (5/325) TAB PO PRN (18:00)
[2017-01-23] MEDS ORDERED: LORAZEPAM 0.5 MG TAB PO PRN (18:00)
[2017-01-23] MEDS ORDERED: BISACODYL (EC) 5 MG TAB PO PRN (18:00)
[2017-01-23] MEDS ORDERED: LABETALOL HCL 20MG INJ IV PRN (18:00)
--- NOTE | 2017-01-23 18:16 | ERD ---
ER Documentation Chief Complaint Chief Complaint PCP recomended pt. to come to ER because there is "water in her lungs". SOB HPI This 76-year-old's emergency room for increasing exertional shortness of breath. She denies chest pain. He saw her primary care doctor told her that he had water in water in her lungs. She is currently in A. fib with RVR on the monitor. She states that she does have a history of that does not know she is on blood thinners. Denies nausea or vomiting. ROS All systems reviewed and are negative except as per history of present illness. Medications Home Meds Active Scripts Furosemide* (Furosemide*) 20 Mg Tablet, 20 MG PO DAILY, #60 TAB Prov:CRISTOBAL DYKES MD 12/21/16 Rivaroxaban* (Xarelto*) 20 Mg Tablet, 20 MG PO WITH DINNER for 60 Days, #60 TAB 5 Refills Prov:CRISTOBAL DYKES MD 12/21/16 Reported Medications Metoprolol Succinate* (Toprol XL*) 100 Mg Tab.sr.24h, 100 MG PO DAILY, #30 TAB 01/23/17 Aspirin* (Aspirin* Chew) 81 Mg Tab.chew, 81 MG PO DAILY, TAB.CHEW 01/23/17 Pravastatin Sodium* (Pravastatin Sodium*) 40 Mg Tablet, 40 MG PO HS, TAB 01/23/17 Amlodipine Besylate* (Amlodipine Besylate*) 10 Mg Tablet, 10 MG PO DAILY, #30 TAB 01/23/17 Calcium Carbonate ([id number]) 500 Mg Tablet, 500 MG PO BID, TAB 12/19/16 Metformin* (Glucophage*) 850 Mg Tablet, 850 MG PO WITH MEALS, #90 TAB 12/19/16 Glipizide* (Glipizide*) 5 Mg Tablet, 5 MG PO DAILY, TAB 12/19/16 Discontinued Reported Medications Benazepril Hcl* (Benazepril Hcl*) 40 Mg Tablet, 40 MG PO DAILY, #30 TAB 12/19/16 Discontinued Scripts Ofloxacin Otic (Ofloxacin Otic) 5 Ml Drops, 5 DROP RIGHT EAR BID for 7 Days, #1 BOTTLE Prov:KRANTHI BARNETT PA-C 12/24/16 Metoprolol Succinate* (Toprol XL*) 100 Mg Tab.sr.24h, 100 MG PO DAILY, #30 TAB Prov:CRISTOBAL DYKES MD 12/21/16 Allergies Allergies: Coded Allergies: No Known Allergy (Verified , 01/23/17) PMhx/Soc History of Surgery: No Anesthesia Reaction: No Hx Neurological Disorder: No Hx Respiratory Disorders: No Hx Cardiac Disorders: Yes (afib) Hx Psychiatric Problems: No Hx Miscellaneous Medical Probl: Yes (DM) Hx Alcohol Use: No Hx Substance Use: No Hx Tobacco Use: No Smoking Status: Never smoker Physical Exam Vitals Vital Signs Date Time Temp Pulse Resp B/P Pulse Ox O2 Delivery O2 Flow Rate FiO2 01/23/17 16:57 98.3 73 18 112/71 100 Room Air 01/23/17 15:12 98.1 70 17 111/69 98 Room Air 01/23/17 12:49 97.9 145 20 134/79 96 Physical Exam Const: [] Moderate distress, appears uncomfortable Head: Atraumatic Eyes: Normal Conjunctiva ENT: Normal External Ears, Nose and Mouth. Eyes mucous membranes of mouth Neck: Full range of motion..~ No JVD Resp: Tachypnea with decreased bibasilar breath sounds with rales on the right. Cardio: Regular tachycardia, no murmurs Abd: Soft, non tender, non distended. Normal bowel sounds Skin: No petechiae or rashes Back: No midline or flank tenderness Ext: No cyanosis, bilateral pitting edema lower extremities. Distal pulses intact Neur: Awake and alert and oriented 3, no focal deficits Psych: Normal Mood and Affect Result Diagram: 01/23/17 1313 01/23/17 1313 Results 24 hrs Laboratory Tests Test 01/23/17 13:13 White Blood Count 6.010^3/ul Red Blood Count 3.8210^6/ul Hemoglobin 10.4g/dl Hematocrit 31.0% Mean Corpuscular Volume 81.2fl Mean Corpuscular Hemoglobin 27.2pg Mean Corpuscular Hemoglobin Concent 33.5g/dl Red Cell Distribution Width 13.5% Platelet Count 67339^3/UL Mean Platelet Volume 9.7fl Neutrophils % 72.9% Lymphocytes % 18.2% Monocytes % 7.5% Eosinophils % 0.3% Basophils % 0.8% Nucleated Red Blood Cells % 0.0/100WBC Neutrophils # 4.410^3/ul Lymphocytes # 1.110^3/ul Monocytes # 0.510^3/ul Eosinophils # 0.010^3/ul Basophils # 0.110^3/ul Nucleated Red Blood Cells # 0.010^3/ul Prothrombin Time 15.0Sec Prothrombin Time Ratio 1.2 INR International Normalized Ratio 1.16 Activated Partial Thromboplast Time 31.0Sec Sodium Level 133mmol/L Potassium Level 3.8mmol/L Chloride Level 95mmol/L Carbon Dioxide Level 23mmol/L Anion Gap 19 Blood Urea Nitrogen 12mg/dl Creatinine 0.80mg/dl Glucose Level 177mg/dl Calcium Level 8.6mg/dl Total Bilirubin 0.6mg/dl Direct Bilirubin 0.00mg/dl Indirect Bilirubin 0.6mg/dl Aspartate Amino Transf (AST/SGOT) 33IU/L Alanine Aminotransferase (ALT/SGPT) 29IU/L Alkaline Phosphatase 55IU/L Troponin I < 0.012ng/ml B-Type Natriuretic Peptide 1490PG/ML Total Protein 7.3g/dl Albumin 4.0g/dl Globulin 3.30g/dl Albumin/Globulin Ratio 1.21 Current Medications Medications (Trade) Dose Ordered Sig/Bk Route PRN Reason Start Time Stop Time Status Last Admin Dose Admin Aspirin (Aspirin) 325 mg ONCE STAT PO 01/23/17 13:07 01/23/17 13:12 DC 01/23/17 14:30 Diltiazem HCl (Cardizem Iv) 20 mg ONCE ONCE IV 01/23/17 13:30 01/23/17 13:31 DC 01/23/17 14:30 Metoprolol Tartrate (Lopressor) 5 mg ONCE ONCE IV 01/23/17 15:00 01/23/17 15:01 DC 01/23/17 15:02 Ondansetron HCl (Zofran Inj) 4 mg ER BRIDGE PRN IV NAUSEA AND/OR VOMITING 01/23/17 16:00 01/24/17 15:59 Acetaminophen (Tylenol Tab) 650 mg ER BRIDGE PRN PO MILD PAIN/FEVER 01/23/17 16:00 01/24/17 15:59 Amlodipine Besylate (Norvasc) 10 mg DAILY PO 01/24/17 09:00 UNV Calcium Carbonate (Oyster Shell Calcium) 0.5 gm BID PO 01/23/17 21:00 UNV Metoprolol Succinate (Toprol Xl) 100 mg DAILY PO 01/24/17 09:00 UNV Rivaroxaban (Xarelto) 20 mg WITH DINNER PO 01/23/17 18:00 UNV Miscellaneous Information (* Miscellaneous Pharmacy Order) Discontinue current oral sulfonylur... ONCE ONCE XX 01/23/17 17:30 01/23/17 17:31 UNV Diagnostic Test (Pha) (Accu-Chek) 1 ea 02 XX 01/24/17 02:00 UNV Miscellaneous Information (* Miscellaneous Pharmacy Order) HYPOGLYCEMIA PROTOCOL w... ONCE ONCE XX 01/23/17 17:30 01/23/17 17:31 UNV Insulin Aspart (Novolog Insulin Pen) NOVOLOG *MILD* ALGORITHM WITH MEALS BEDTIME SC 01/23/17 18:00 UNV Miscellaneous Information (* Miscellaneous Pharmacy Order) Discontinue all previ... ONCE ONCE XX 01/23/17 17:30 01/23/17 17:31 UNV Atorvastatin Calcium (Lipitor) 40 mg HS PO 01/23/17 21:00 UNV IV Flush (NS 3 ml) 3 ml PER PROTOCOL IV 01/23/17 18:00 UNV Lorazepam (Ativan) 0.5 mg Q8H PRN PO ANXIETY 01/23/17 18:00 UNV Ondansetron HCl (Zofran Inj) 4 mg Q6H PRN IV NAUSEA AND/OR VOMITING 01/23/17 18:00 UNV Acetaminophen (Tylenol Tab) 650 mg Q6H PRN PO PAIN LEVEL 1-3 OR FEVER 01/23/17 18:00 UNV Acetaminophen/ Hydrocodone Bitart ([place] (5/325)) 1 tab Q6H PRN PO PAIN LEVEL 4-6 01/23/17 18:00 UNV Morphine Sulfate (morphine) 2 mg Q4H PRN IV PAIN LEVEL 7-10 01/23/17 18:00 UNV Bisacodyl (Dulcolax) 5 mg DAILY PRN PO CONSTIPATION 01/23/17 18:00 UNV Pantoprazole (Protonix Tab) 40 mg DAILY@06 PO 01/24/17 06:00 UNV Labetalol HCl (Labetalol) 10 mg Q4 PRN IV SBP >160 01/23/17 18:00 UNV Furosemide (Lasix) 20 mg BID DIURETICS IV 01/23/17 18:00 UNV Procedures/MDM Respiratory distress secondary to A. fib with RVR and resulting CHF. He was immediately given Cardizem 20 mg IV which did rate control her. She was given additional 5 mg of metoprolol in order to continue the rate control prior to p.o. medication. Also given 325 mg of aspirin. Was placed on oxygen and her shortness of breath has improved since her heart rate was controlled. No signs of acute ischemia with negative troponin so far. Troponins will be trended. Spoke with Dr. Ayers who will be admitting. 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 fib with RVR rate of 120s-150s. Rate controlled after Cardizem administration. No other arrhythmias Chest x-ray interpretation: Likely bilateral pleural effusions without obvious infiltrate, I see no pneumothorax, no gross pulmonary edema, no fractures Critical care time greater than 35 minutes: This includes treatment of unstable vital signs, management A. fib with RVR using vasoactive medications Cardizem and metoprolol IV, chart review, multiple visits patient's bedside to reassess status, discussion with patient and admitting doctor. This does not include any billable procedures Departure Diagnosis: Primary Impression: Atrial fibrillation with RVR Additional Impressions: Respiratory distress Congestive heart failure Bilateral pleural effusion Microcytic anemia Condition: Serious LORNA BONNRE DO Jan 23, 2017 18:16
[2017-01-23 18:54] VITALS: PULSE 100
--- NOTE | 2017-01-23 19:25 | CONS ---
Date/Time of Note Date/Time of Note DATE: 01/23/17 TIME: 19:21 Assessment/Plan Assessment/Plan Chief Complaint/Hosp Course 1) AFIB w RVR 2) Fluid overload w [place]a 3) Borderline LV function 4) HTN 5) HLP 6) h/o CVA Problems: Additional Assessment/Plan 1) Diuresis 2) add digoxin 3) may require abdominal hart for distention/ascites which is disproportionate to the EF from 12/22 Consultation Date/Type/Reason Admit Date/Time Date of Consultation: Jan 23, 2017 Type of Consultation: cv Hx of Present Illness admitted after going to PCP office, was told she has water in lungs and abdomen , reports abdominal distention, currently no sob, no chest pain, no syncope or near syncope, no palpitations ENT: no complaints Respiratory: no complaints Cardiovascular: no complaints Gastrointestinal: no complaints Musculoskeletal: no complaints Skin: no complaints Neurologic: no complaints Past Medical History Medical History: high cholesterol, hypertension, other (afib) Past Surgical History Past Surgical Hx: no surgical history Family History Significant Family History: hypertension Social History Smoking Status: Never smoker Exam/Review of Systems Vital Signs Vitals Vital Signs Date Time Temp Pulse Resp B/P Pulse Ox O2 Delivery O2 Flow Rate FiO2 01/23/17 18:54 100 01/23/17 16:57 98.3 18 112/71 100 Room Air Exam Constitutional: alert, oriented Head: atraumatic, normocephalic Neck: supple Respiratory: diminished breath sounds Cardiovascular: irregular rhythm Gastrointestinal: ascites Musculoskeletal: nl extremities to inspection Extremities: normal pulses Results Result Diagram: 01/23/17 1313 01/23/17 1313 Results 24 hrs Laboratory Tests Test 01/23/17 13:13 White Blood Count 6.0 Red Blood Count 3.82 L Hemoglobin 10.4 L Hematocrit 31.0 L Mean Corpuscular Volume 81.2 L Mean Corpuscular Hemoglobin 27.2 L Mean Corpuscular Hemoglobin Concent 33.5 Red Cell Distribution Width 13.5 Platelet Count 336 Mean Platelet Volume 9.7 Neutrophils % 72.9 Lymphocytes % 18.2 Monocytes % 7.5 Eosinophils % 0.3 Basophils % 0.8 Nucleated Red Blood Cells % 0.0 Neutrophils # 4.4 Lymphocytes # 1.1 Monocytes # 0.5 Eosinophils # 0.0 Basophils # 0.1 Nucleated Red Blood Cells # 0.0 Prothrombin Time 15.0 H Prothrombin Time Ratio 1.2 INR International Normalized Ratio 1.16 Activated Partial Thromboplast Time 31.0 Sodium Level 133 L Potassium Level 3.8 Chloride Level 95 L Carbon Dioxide Level 23 Anion Gap 19 H Blood Urea Nitrogen 12 Creatinine 0.80 Glucose Level 177 Calcium Level 8.6 Total Bilirubin 0.6 Direct Bilirubin 0.00 Indirect Bilirubin 0.6 Aspartate Amino Transf (AST/SGOT) 33 Alanine Aminotransferase (ALT/SGPT) 29 Alkaline Phosphatase 55 Troponin I < 0.012 B-Type Natriuretic Peptide 1490 H Total Protein 7.3 Albumin 4.0 Globulin 3.30 H Albumin/Globulin Ratio 1.21 Medications Medications Current Medications Amlodipine Besylate (Norvasc) 10 mg DAILY PO ; Start 01/24/17 at 09:00 Calcium Carbonate (Oyster Shell Calcium) 1.25 gm BID PO ; Start 01/23/17 at 21: 00 Metoprolol Succinate (Toprol Xl) 100 mg DAILY PO ; Start 01/24/17 at 09:00; Status UNV Diagnostic Test (Pha) (Accu-Chek) 1 ea 02 XX ; Start 01/24/17 at 02:00 Atorvastatin Calcium (Lipitor) 40 mg HS PO ; Start 01/23/17 at 21:00 Lorazepam (Ativan) 0.5 mg Q8H PRN PO ANXIETY; Start 01/23/17 at 18:00; Status UNV Ondansetron HCl (Zofran Inj) 4 mg Q6H PRN IV NAUSEA AND/OR VOMITING; Start at 18:00; Status UNV Acetaminophen (Tylenol Tab) 650 mg Q6H PRN PO PAIN LEVEL 1-3 OR FEVER; Start 01/23/17 at 18:00 Acetaminophen/ Hydrocodone Bitart ([place] (5/325)) 1 tab Q6H PRN PO PAIN LEVEL 4 -6; Start 01/23/17 at 18:00 Morphine Sulfate (morphine) 2 mg Q4H PRN IV PAIN LEVEL 7-10; Start 01/23/17 at 18:00; Status UNV Bisacodyl (Dulcolax) 5 mg DAILY PRN PO CONSTIPATION; Start 01/23/17 at 18:00 Pantoprazole (Protonix Tab) 40 mg DAILY@06 PO ; Start 01/24/17 at 06:00; Status UNV Labetalol HCl (Labetalol) 10 mg Q4H PRN IV SBP >160; Start 01/23/17 at 18:00 Miscellaneous Information 1 ea NOTE XX ; Start 01/23/17 at 19:30 Glucose (Glutose) 15 gm Q15M PRN PO DECREASED GLUCOSE; Start 01/23/17 at 19:30 Glucose (Glutose) 22.5 gm Q15M PRN PO DECREASED GLUCOSE; Start 01/23/17 at 19: 30 Dextrose (D50w Syringe) 25 ml Q15M PRN IV DECREASED GLUCOSE; Start 01/23/17 at 19:30 Dextrose (D50w Syringe) 50 ml Q15M PRN IV DECREASED GLUCOSE; Start 01/23/17 at 19:30 Glucagon (Glucagen) 1 mg Q15M PRN IM DECREASED GLUCOSE; Start 01/23/17 at 19: 30 Glucose (Glutose) 15 gm Q15M PRN BUCCAL DECREASED GLUCOSE; Start 01/23/17 at 19:30 SANTOSH SAUCEDA MD Jan 23, 2017 19:25
[2017-01-23] MEDS ORDERED: GLUCOSE GEL 15 GRAM TUBE PO PRN ×2 (19:30)
[2017-01-23] MEDS ORDERED: GLUCAGON 1 MG INJ IM PRN (19:30)
[2017-01-23] MEDS ORDERED: DEXTROSE 50% 50 ML SYRINGE IV PRN ×2 (19:30)
[2017-01-23] MEDS ORDERED: GLUCOSE GEL 15 GRAM TUBE BUCCAL PRN (19:30)
[2017-01-23 20:02] VITALS: BP 117/59; RESP 20
[2017-01-23 20:13] VITALS: PULSE 100
[2017-01-23 20:30] VITALS: Ht 162.6 cm; Wt 85.4 kg
[2017-01-23] MEDS: INSULIN ASPART [NOVOLOG] 3 ML PEN SC SCH (21:00)
[2017-01-23 21:04] LABS: CREATINE KINASE 79 IU/L (23-200)
[2017-01-23 21:17] LABS: CK-MB 2.05 ng/ml (0.0-2.4)
[2017-01-23 21:19] LABS: TROPONIN-I < 0.012 ng/ml (0.00-0.12)
[2017-01-23] MEDS: ATORVASTATIN 40 MG TAB PO SCH (21:58)
[2017-01-23] MEDS: RIVAROXABAN 20 MG TABLET PO SCH (21:58)
[2017-01-23] MEDS: CALCIUM CARBONATE 1.25 GM TAB PO SCH (21:58)
[2017-01-23] MEDS: FUROSEMIDE 20 MG INJ IV SCH (21:59)
[2017-01-23 23:58] VITALS: BP 119/59; RESP 21
[2017-01-24] VITALS (12 sets, daily range): BP systolic 108–137; BP diastolic 62–69; PULSE 79–114; RESP 16–21
[2017-01-24 01:25] LABS: CREATINE KINASE 79 IU/L (23-200)
[2017-01-24 01:38] LABS: CK-MB 1.97 ng/ml (0.0-2.4)
[2017-01-24 01:40] LABS: TROPONIN-I < 0.012 ng/ml (0.00-0.12)
[2017-01-24] MEDS: ACCU-CHEK XX SCH (02:00)
[2017-01-24] MEDS: PANTOPRAZOLE (EC) 40 MG TAB PO SCH (05:39)
[2017-01-24] MEDS: FUROSEMIDE 20 MG INJ IV SCH (05:39)
[2017-01-24] MEDS: INSULIN ASPART [NOVOLOG] 3 ML PEN SC SCH ×4 (08:00→21:00)
[2017-01-24] MEDS ORDERED: METOPROLOL (XL) 50 MG TAB PO SCH (09:00)
[2017-01-24] MEDS: AMLODIPINE 10 MG TAB PO SCH (09:18)
[2017-01-24] MEDS: CALCIUM CARBONATE 1.25 GM TAB PO SCH ×2 (09:18→21:33)
[2017-01-24 09:22] LABS: BASOPHILS % 0.6 % (0.0-2.0); EOSINOPHILS # 0.1 10^3/ul (0.0-0.5); EOSINOPHILS % 0.9 % (0.0-7.0); HEMATOCRIT 30.4 % (37.0-47.0); HEMOGLOBIN 10.3 g/dl (12.0-16.0); LYMPHOCYTES # 1.1 10^3/ul (0.8-2.9); LYMPHOCYTES % 17.1 % (15.0-51.0); MEAN CORPUSCULAR HEMOGLOBIN 27.3 pg (29.0-33.0); MEAN CORPUSCULAR HGB CONC 33.9 g/dl (32.0-37.0); MEAN CORPUSCULAR VOLUME 80.6 fl (82.0-101.0); MEAN PLATELET VOLUME 9.8 fl (7.4-10.4); MONOCYTE # 0.5 10^3/ul (0.3-0.9); MONOCYTES % 6.9 % (0.0-11.0); NEUTROPHIL # 4.8 10^3/ul (1.6-7.5); NEUTROPHILS % 74.2 % (39.0-77.0); PLATELET COUNT 340 10^3/UL (140-415); RED BLOOD COUNT 3.77 10^6/ul (4.20-5.40); RED CELL DISTRIBUTION WIDTH 13.4 % (11.5-14.5); WHITE BLOOD COUNT 6.5 10^3/ul (4.8-10.8)
[2017-01-24 09:45] LABS: IRON 14 ug/dl (35-150)
[2017-01-24 09:55] LABS: TOTAL IRON BINDING CAPACITY 392 ug/dl (241-421)
[2017-01-24 09:57] LABS: ALBUMIN 3.6 g/dl (3.3-4.9); ALBUMIN/GLOBULIN RATIO 1.12; BILIRUBIN,INDIRECT 0.6 mg/dl (0-1.1); BILIRUBIN,TOTAL 0.6 mg/dl (0.2-1.3); CALCIUM 9.1 mg/dl (8.4-10.2); CHOL/HDL RATIO 2.1 RATIO; CREATININE 0.76 mg/dl (0.44-1.00); POTASSIUM 3.5 mmol/L (3.5-5.1); TOTAL PROTEIN 6.8 g/dl (6.1-8.1)
[2017-01-24 10:23] LABS: THYROID STIMULATING HORMONE 0.914 MIU/L (0.465-4.680)
[2017-01-24] MEDS ORDERED: MAGNESIUM SULFATE 3 GM in DEXTROSE 5% 100 ML IVPB ONE (12:00)
[2017-01-24] MEDS: DIGOXIN 0.125 MG TAB PO SCH (12:44)
[2017-01-24] MEDS: SOD FERRIC GLUC COMPLX 125 MG in SOD CHLORIDE 0.9% 100 ML IVPB SCH (13:35)
--- NOTE | 2017-01-24 14:14 | PN ---
Date/Time of Note Date/Time of Note DATE: 01/24/17 TIME: 14:12 Assessment/Plan VTE Prophylaxis VTE Prophylaxis Intervention: ambulation, SCD's Lines/Catheters IV Catheter Type (from Nrsg): Peripheral IV Assessment/Plan Chief Complaint/Hosp Course subjective 12.20 patient feeling much better Objective Physical exam General: Patient is laying in bed and answers questions appropriately Mentation: Patient is alert and oriented 4, Head: Normocephalic atraumatic Eyes: EOMI, pupils reactive to light Neck: Supple, nontender, midline Respiratory: Clear to auscultation bilaterally Cardiovascular: regular rate, no obvious murmurs Gastrointestinal: non-tender to palpation, bowel sounds heard. Neurological: Moves all extremities spontaneously Skin: 1+ pitting edema bilat LE Assessment and plan A. fib with RVR -Patient has a history of recently diagnosed A. fib, continue Xarelto and metoprolol, cardiology added digoxin -Echo noted per cardiology -2 view chest x-ray pending -Questionable etiology, possible in need of medication optimization abdominal distention -US pending Acute on chronic systolic congestive heart failure -Repeat echo noted -Cardiology recommendations appreciated -BNP is elevated, IV Lasix for now, we will transition to p.o. when ok with cards Diabetes mellitus -Insulin sliding scale Dyslipidemia -Atorvastatin instead of pravastatin due to formulary Hypertension -Continue home medications CVA -Questionable true CVA, patient on aspirin and Eliquis, will hold aspirin for now continue Eliquis, cardiology recommendations appreciated Disposition -med optimization -f/u US and xray Problems: Exam/Review of Systems Vital Signs Vitals Vital Signs Date Time Temp Pulse Resp B/P Pulse Ox O2 Delivery O2 Flow Rate FiO2 01/24/17 12:16 89 01/24/17 12:01 98.7 18 137/68 92 01/23/17 16:57 Room Air Intake and Output 01/23/17 01/23/17 01/24/17 15:00 23:00 07:00 Intake Total 480 ml Output Total 1200 ml Balance -720 ml Results Result Diagram: 01/24/17 0835 01/24/17 0835 Results 24 hrs Laboratory Tests Test 01/23/17 20:29 01/23/17 21:55 01/24/17 01:00 01/24/17 03:05 Creatine Kinase 79 79 Creatine Kinase Index 2.6 2.5 Creatinine Kinase MB (Mass) 2.05 1.97 Troponin I < 0.012 < 0.012 Bedside Glucose 112 147 Test 01/24/17 08:34 01/24/17 08:35 01/24/17 12:31 Bedside Glucose 134 211 White Blood Count 6.5 Red Blood Count 3.77 L Hemoglobin 10.3 L Hematocrit 30.4 L Mean Corpuscular Volume 80.6 L Mean Corpuscular Hemoglobin 27.3 L Mean Corpuscular Hemoglobin Concent 33.9 Red Cell Distribution Width 13.4 Platelet Count 340 Mean Platelet Volume 9.8 Neutrophils % 74.2 Lymphocytes % 17.1 Monocytes % 6.9 Eosinophils % 0.9 Basophils % 0.6 Nucleated Red Blood Cells % 0.0 Neutrophils # 4.8 Lymphocytes # 1.1 Monocytes # 0.5 Eosinophils # 0.1 Basophils # 0.0 Nucleated Red Blood Cells # 0.0 Sodium Level 136 Potassium Level 3.5 Chloride Level 94 L Carbon Dioxide Level 30 Anion Gap 16 Blood Urea Nitrogen 9 Creatinine 0.76 Glucose Level 140 Calcium Level 9.1 Magnesium Level 1.0 L Iron Level 14 L Total Iron Binding Capacity 392 Percent Iron Saturation 4 L Ferritin 10.7 L Total Bilirubin 0.6 Direct Bilirubin 0.00 Indirect Bilirubin 0.6 Aspartate Amino Transf (AST/SGOT) 29 Alanine Aminotransferase (ALT/SGPT) 29 Alkaline Phosphatase 50 Total Protein 6.8 Albumin 3.6 Globulin 3.20 Albumin/Globulin Ratio 1.12 Triglycerides Level 52 Cholesterol Level 72 L LDL Cholesterol, Calculated 29 HDL Cholesterol 33 Cholesterol/HDL Ratio 2.1 Thyroid Stimulating Hormone (TSH) 0.914 Medications Medications Current Medications Amlodipine Besylate (Norvasc) 10 mg DAILY PO Last administered on 01/24/17 09 :18; Admin Dose 10 MG; Start 01/24/17 at 09:00 Calcium Carbonate (Oyster Shell Calcium) 1.25 gm BID PO Last administered on 09:18; Admin Dose 1.25 GM; Start 01/23/17 at 21:00 Metoprolol Succinate (Toprol Xl) 100 mg DAILY PO Last administered on 09:18; Admin Dose 100 MG; Start 01/24/17 at 09:00 Diagnostic Test (Pha) (Accu-Chek) 1 ea 02 XX ; Start 01/24/17 at 02:00 Atorvastatin Calcium (Lipitor) 40 mg HS PO Last administered on 01/23/17 21: 58; Admin Dose 40 MG; Start 01/23/17 at 21:00 Lorazepam (Ativan) 0.5 mg Q8H PRN PO ANXIETY; Start 01/23/17 at 18:00 Ondansetron HCl (Zofran Inj) 4 mg Q6H PRN IV NAUSEA AND/OR VOMITING; Start at 18:00 Acetaminophen (Tylenol Tab) 650 mg Q6H PRN PO PAIN LEVEL 1-3 OR FEVER; Start 01/23/17 at 18:00 Acetaminophen/ Hydrocodone Bitart ([place] (5/325)) 1 tab Q6H PRN PO PAIN LEVEL 4 -6; Start 01/23/17 at 18:00 Morphine Sulfate (morphine) 6 mg Q4H PRN PO PAIN LEVEL 7-10; Start 01/23/17 at 18:00 Bisacodyl (Dulcolax) 5 mg DAILY PRN PO CONSTIPATION; Start 01/23/17 at 18:00 Pantoprazole (Protonix Tab) 40 mg DAILY@06 PO Last administered on 01/24/17 05:39; Admin Dose 40 MG; Start 01/24/17 at 06:00 Labetalol HCl (Labetalol) 10 mg Q4H PRN IV SBP >160; Start 01/23/17 at 18:00 Miscellaneous Information 1 ea NOTE XX ; Start 01/23/17 at 19:30 Glucose (Glutose) 15 gm Q15M PRN PO DECREASED GLUCOSE; Start 01/23/17 at 19:30 Glucose (Glutose) 22.5 gm Q15M PRN PO DECREASED GLUCOSE; Start 01/23/17 at 19: 30 Dextrose (D50w Syringe) 25 ml Q15M PRN IV DECREASED GLUCOSE; Start 01/23/17 at 19:30 Dextrose (D50w Syringe) 50 ml Q15M PRN IV DECREASED GLUCOSE; Start 01/23/17 at 19:30 Glucagon (Glucagen) 1 mg Q15M PRN IM DECREASED GLUCOSE; Start 01/23/17 at 19: 30 Glucose (Glutose) 15 gm Q15M PRN BUCCAL DECREASED GLUCOSE; Start 01/23/17 at 19:30 Digoxin 0.125 mg 0.125 mg DAILY@13 PO Last administered on 01/24/17 12:44; Admin Dose 0.125 MG; Start 01/24/17 at 13:00 Magnesium Sulfate 3 gm/Dextrose 106 ml @ 35.333 mls/ hr ONCE ONCE IVPB Last administered on 01/24/17 13:35; Admin Dose 35.333 MLS/HR; Start 01/24/17 at 12:00; Stop 01/24/17 at 14:59 Ferric Sodium Gluconate Complex/ Sodium Chloride (Ferrlecit/NS) 110 ml @ 100 mls/hr Q24H IVPB Last administered on 01/24/17 13:35; Admin Dose 100 MLS/HR; Start 01/24/17 at 12:00; Stop 01/26/17 at 13:05 LISA BARNETT Jan 24, 2017 14:14
--- NOTE | 2017-01-24 14:31 | RADRPT ---
Echocardiogram Report Patient Name: LASHAWN DAVE Gender: Female Date: 1940 Study Date: 24-Jan-2017 [employer] Teacher: Pao Benítez [facility] Location: 5552 Ref. Physician: LISA BARNETT Quality: Adequate Procedures: Transthoracic echocardiogram examination. Indications: Atrial Fibrillation. Findings Left Ventricle: Lower limits of normal left ventricular systolic function. The left ventricular ejection fraction is visually estimated at 50 %. Right Ventricle: Normal right ventricular systolic function. Left Atrium: There is mild enlargement of left atrium. Right Atrium: Moderate RA enlargement with measurements between [id number]. Pericardium: Trivial effusion. IVC: Dilated inferior vena cava with no respiratory collapse. Conclusions 1.Lower limits of normal left ventricular systolic function. The left ventricular ejection fraction is visually estimated at 50 %. 2.Normal right ventricular systolic function. 3.Trivial effusion. Electronically Signed By: Kendall Ann 24-Jan-2017 14:31:30 -0800 Patient Name: LASHAWN DAVE Study Date: 24-Jan-[id number]
[2017-01-24] MEDS ORDERED: FUROSEMIDE 20 MG INJ IV ONE (15:50)
[2017-01-24] MEDS ORDERED: POTASSIUM CHLORIDE (SR) 20 MEQ TAB PO STA (15:50)
--- NOTE | 2017-01-24 15:56 | CONS ---
Date/Time of Note Date/Time of Note DATE: 01/24/17 TIME: 15:51 Assessment/Plan Assessment/Plan Additional Assessment/Plan Acute decompensated systolic and diastolic congestive heart failure Cardiomyopathy with ejection fraction 50% Atrial fibrillation Hypertension -With order 40 mg IV Lasix now and continue 20 mg IV twice daily. Magnesium supplementation has been ordered as well as potassium. Maintain potassium above 4.0 and magnesium above 2.0. Adjust beta-mu to twice daily dosing. Limited echocardiogram performed today with ejection fraction 50% and IVC is dilated and does not collapse. If blood pressure remains stable on diuretics, and renal function permits, would start YOLANDE inhibitor for afterload reduction in the next 1-2 days. Consultation Date/Type/Reason Admit Date/Time Jan 23, 2017 at 15:59 Initial Consult Date 01/23/17 Type of Consultation: cv 24 HR Interval Summary Free Text/Dictation Shortness of breath is better. Still has cough. Denies chest pain Exam/Review of Systems Vital Signs Vitals Vital Signs Date Time Temp Pulse Resp B/P Pulse Ox O2 Delivery O2 Flow Rate FiO2 01/24/17 12:16 89 01/24/17 12:01 98.7 18 137/68 92 01/23/17 16:57 Room Air Intake and Output 01/23/17 01/23/17 01/24/17 15:00 23:00 07:00 Intake Total 480 ml Output Total 1200 ml Balance -720 ml Exam No apparent distress Constitutional: alert, oriented Head: normocephalic Respiratory: other (Coarse breath sounds bilaterally, no wheezing) Cardiovascular: irregular rhythm, other (S1-S2 heard) Gastrointestinal: bowel sounds, non-tender, soft Extremities: edema Results Result Diagram: 01/24/17 0835 01/24/17 0835 Results 24 hrs Laboratory Tests Test 01/23/17 20:29 01/23/17 21:55 01/24/17 01:00 01/24/17 03:05 Creatine Kinase 79 79 Creatine Kinase Index 2.6 2.5 Creatinine Kinase MB (Mass) 2.05 1.97 Troponin I < 0.012 < 0.012 Bedside Glucose 112 147 Test 01/24/17 08:34 01/24/17 08:35 01/24/17 12:31 Bedside Glucose 134 211 White Blood Count 6.5 Red Blood Count 3.77 L Hemoglobin 10.3 L Hematocrit 30.4 L Mean Corpuscular Volume 80.6 L Mean Corpuscular Hemoglobin 27.3 L Mean Corpuscular Hemoglobin Concent 33.9 Red Cell Distribution Width 13.4 Platelet Count 340 Mean Platelet Volume 9.8 Neutrophils % 74.2 Lymphocytes % 17.1 Monocytes % 6.9 Eosinophils % 0.9 Basophils % 0.6 Nucleated Red Blood Cells % 0.0 Neutrophils # 4.8 Lymphocytes # 1.1 Monocytes # 0.5 Eosinophils # 0.1 Basophils # 0.0 Nucleated Red Blood Cells # 0.0 Sodium Level 136 Potassium Level 3.5 Chloride Level 94 L Carbon Dioxide Level 30 Anion Gap 16 Blood Urea Nitrogen 9 Creatinine 0.76 Glucose Level 140 Calcium Level 9.1 Magnesium Level 1.0 L Iron Level 14 L Total Iron Binding Capacity 392 Percent Iron Saturation 4 L Ferritin 10.7 L Total Bilirubin 0.6 Direct Bilirubin 0.00 Indirect Bilirubin 0.6 Aspartate Amino Transf (AST/SGOT) 29 Alanine Aminotransferase (ALT/SGPT) 29 Alkaline Phosphatase 50 Total Protein 6.8 Albumin 3.6 Globulin 3.20 Albumin/Globulin Ratio 1.12 Triglycerides Level 52 Cholesterol Level 72 L LDL Cholesterol, Calculated 29 HDL Cholesterol 33 Cholesterol/HDL Ratio 2.1 Thyroid Stimulating Hormone (TSH) 0.914 Medications Medications Current Medications Amlodipine Besylate (Norvasc) 10 mg DAILY PO Last administered on 01/24/17 09 :18; Admin Dose 10 MG; Start 01/24/17 at 09:00 Calcium Carbonate (Oyster Shell Calcium) 1.25 gm BID PO Last administered on 09:18; Admin Dose 1.25 GM; Start 01/23/17 at 21:00 Metoprolol Succinate (Toprol Xl) 100 mg DAILY PO Last administered on 09:18; Admin Dose 100 MG; Start 01/24/17 at 09:00 Diagnostic Test (Pha) (Accu-Chek) 1 ea 02 XX ; Start 01/24/17 at 02:00 Atorvastatin Calcium (Lipitor) 40 mg HS PO Last administered on 01/23/17 21: 58; Admin Dose 40 MG; Start 01/23/17 at 21:00 Lorazepam (Ativan) 0.5 mg Q8H PRN PO ANXIETY; Start 01/23/17 at 18:00 Ondansetron HCl (Zofran Inj) 4 mg Q6H PRN IV NAUSEA AND/OR VOMITING; Start at 18:00 Acetaminophen (Tylenol Tab) 650 mg Q6H PRN PO PAIN LEVEL 1-3 OR FEVER; Start 01/23/17 at 18:00 Acetaminophen/ Hydrocodone Bitart ([place] (5/325)) 1 tab Q6H PRN PO PAIN LEVEL 4 -6; Start 01/23/17 at 18:00 Morphine Sulfate (morphine) 6 mg Q4H PRN PO PAIN LEVEL 7-10; Start 01/23/17 at 18:00 Bisacodyl (Dulcolax) 5 mg DAILY PRN PO CONSTIPATION; Start 01/23/17 at 18:00 Pantoprazole (Protonix Tab) 40 mg DAILY@06 PO Last administered on 01/24/17 05:39; Admin Dose 40 MG; Start 01/24/17 at 06:00 Labetalol HCl (Labetalol) 10 mg Q4H PRN IV SBP >160; Start 01/23/17 at 18:00 Miscellaneous Information 1 ea NOTE XX ; Start 01/23/17 at 19:30 Glucose (Glutose) 15 gm Q15M PRN PO DECREASED GLUCOSE; Start 01/23/17 at 19:30 Glucose (Glutose) 22.5 gm Q15M PRN PO DECREASED GLUCOSE; Start 01/23/17 at 19: 30 Dextrose (D50w Syringe) 25 ml Q15M PRN IV DECREASED GLUCOSE; Start 01/23/17 at 19:30 Dextrose (D50w Syringe) 50 ml Q15M PRN IV DECREASED GLUCOSE; Start 01/23/17 at 19:30 Glucagon (Glucagen) 1 mg Q15M PRN IM DECREASED GLUCOSE; Start 01/23/17 at 19: 30 Glucose (Glutose) 15 gm Q15M PRN BUCCAL DECREASED GLUCOSE; Start 01/23/17 at 19:30 Digoxin 0.125 mg 0.125 mg DAILY@13 PO Last administered on 01/24/17 12:44; Admin Dose 0.125 MG; Start 01/24/17 at 13:00 Ferric Sodium Gluconate Complex/ Sodium Chloride (Ferrlecit/NS) 110 ml @ 100 mls/hr Q24H IVPB Last administered on 01/24/17 13:35; Admin Dose 100 MLS/HR; Start 01/24/17 at 12:00; Stop 01/26/17 at 13:05 Kendall Ann DO Jan 24, 2017 15:56
--- NOTE | 2017-01-24 17:18 | RADRPT ---
PROCEDURE: Limited ultrasound abdomen CLINICAL INDICATION: Distended abdomen TECHNIQUE: Transabdominal scan COMPARISON: None FINDINGS: 4 quadrants were evaluated, large ascites seen. Small hypoechoic liver is visualized. IMPRESSION: Large ascites. RPTAT: AAOO Physician Adelia Date Time Electronically viewed and signed by Physician Adelia on 01/24/2017 17:18 MB/
[2017-01-24] MEDS: RIVAROXABAN 20 MG TABLET PO SCH (17:30)
--- NOTE | 2017-01-24 17:33 | RADRPT ---
PROCEDURE: Chest 2 views. CLINICAL INDICATION: Shortness of breath. Pleural effusion. TECHNIQUE: PA and lateral views of the chest were obtained. COMPARISON: DR GOETZ 01/23/2017 FINDINGS: The heart is large. Calcified atherosclerosis is noted in the aorta. Small bilateral pleural effusi ons are identified. Scattered atelectasis is noted in the bilateral lower lobes.. No consolidations are identified. No pneumothorax is seen. The lungs are hyperexpanded. Mild interstitial prominence is seen in both lungs. Osseous structures are intact. IMPRESSION: Cardiomegaly with calcified atherosclerosis in the aorta. Small bilateral pleural effusions. Scattered atelectasis in the bilateral lower lobes. Hyperexpanded lungs with diffuse mild interstitial prominence in both lungs. Interstitial prominenc e could be chronic. Findings could reflect COPD. RPTAT: AA .iT Padilla MD, Date Time Electronically viewed and signed by .Ti Padilla MD, on 01/24/2017 17:32 .P/
[2017-01-24] MEDS: ATORVASTATIN 40 MG TAB PO SCH (21:33)
[2017-01-24] MEDS: METOPROLOL (XL) 50 MG TAB PO SCH (21:34)
[2017-01-25] VITALS (11 sets, daily range): BP systolic 105–130; BP diastolic 57–71; PULSE 78–100; RESP 17–76
[2017-01-25] MEDS: ACCU-CHEK XX SCH (02:00)
[2017-01-25] MEDS: PANTOPRAZOLE (EC) 40 MG TAB PO SCH (05:52)
[2017-01-25] MEDS: FUROSEMIDE 20 MG INJ IV SCH ×2 (05:52→17:23)
[2017-01-25 07:43] LABS: BASOPHIL # 0.1 10^3/ul (0.0-0.1); BASOPHILS % 0.8 % (0.0-2.0); EOSINOPHILS # 0.1 10^3/ul (0.0-0.5); EOSINOPHILS % 1.1 % (0.0-7.0); HEMATOCRIT 30.2 % (37.0-47.0); HEMOGLOBIN 10.3 g/dl (12.0-16.0); LYMPHOCYTES % 14.7 % (15.0-51.0); MEAN CORPUSCULAR HEMOGLOBIN 27.6 pg (29.0-33.0); MEAN CORPUSCULAR HGB CONC 34.1 g/dl (32.0-37.0); MEAN PLATELET VOLUME 9.8 fl (7.4-10.4); MONOCYTE # 0.4 10^3/ul (0.3-0.9); MONOCYTES % 6.6 % (0.0-11.0); NEUTROPHILS % 76.6 % (39.0-77.0); PLATELET COUNT 328 10^3/UL (140-415); RED BLOOD COUNT 3.73 10^6/ul (4.20-5.40); RED CELL DISTRIBUTION WIDTH 13.5 % (11.5-14.5); WHITE BLOOD COUNT 6.5 10^3/ul (4.8-10.8)
[2017-01-25] MEDS: INSULIN ASPART [NOVOLOG] 3 ML PEN SC SCH ×4 (08:06→21:37)
[2017-01-25 08:07] LABS: CALCIUM 8.8 mg/dl (8.4-10.2); CREATININE 0.78 mg/dl (0.44-1.00); MAGNESIUM 1.5 mg/dl (1.7-2.5); PHOSPHORUS 3.7 mg/dl (2.5-4.9); POTASSIUM 3.8 mmol/L (3.5-5.1)
[2017-01-25] MEDS: AMLODIPINE 10 MG TAB PO SCH (08:08)
[2017-01-25] MEDS: CALCIUM CARBONATE 1.25 GM TAB PO SCH ×2 (08:08→21:25)
[2017-01-25] MEDS: METOPROLOL (XL) 50 MG TAB PO SCH ×2 (08:08→21:25)
[2017-01-25] MEDS ORDERED: FUROSEMIDE 20 MG INJ IV SCH (09:00)
[2017-01-25] MEDS ORDERED: MAGNESIUM SULFATE 2 GM/50 ML 50 ML IVPB ONE (10:30)
[2017-01-25] MEDS: DIGOXIN 0.125 MG TAB PO SCH (12:15)
[2017-01-25 12:26] LABS: HAAIG REFLEX REFLEX FILED
[2017-01-25 12:51] LABS: INR 3.14; PROTIME 33.2 Sec (11.9-14.9); PT RATIO 2.6
[2017-01-25] MEDS ORDERED: ALBUMIN HUMAN 25% 100 ML IV ONE (13:00)
--- NOTE | 2017-01-25 13:03 | CONS ---
Date/Time of Note Date/Time of Note DATE: 01/25/17 TIME: 13:01 Assessment/Plan Assessment/Plan Additional Assessment/Plan Acute decompensated systolic and diastolic congestive heart failure Cardiomyopathy with ejection fraction 50% Atrial fibrillation Hypertension -Patient with improvement in symptoms on IV diuretics, would continue diuresis. Maintain potassium above 4.0 and magnesium above 2.0. Would decrease dose of Norvasc given borderline blood pressure. Heart rate is controlled. Consultation Date/Type/Reason Admit Date/Time Jan 23, 2017 at 15:59 Initial Consult Date 01/23/17 Type of Consultation: cv 24 HR Interval Summary Free Text/Dictation Shortness of breath is better today. Denies chest pain or palpitations Exam/Review of Systems Vital Signs Vitals Vital Signs Date Time Temp Pulse Resp B/P Pulse Ox O2 Delivery O2 Flow Rate FiO2 01/25/17 12:08 88 01/25/17 11:52 97.3 17 126/71 94 01/23/17 16:57 Room Air Intake and Output 01/24/17 01/24/17 01/25/17 14:59 22:59 06:59 Intake Total 400 ml 450 ml Balance 400 ml 450 ml Exam No apparent distress Constitutional: alert, oriented Head: normocephalic Respiratory: other (Coarse breath sounds bilaterally, no wheezing) Cardiovascular: irregular rhythm, other (S1-S2 heard) Gastrointestinal: bowel sounds, non-tender, soft Extremities: edema Results Result Diagram: 01/25/17 0706 01/25/17 0706 Results 24 hrs Laboratory Tests Test 01/24/17 17:25 01/24/17 21:37 01/25/17 07:06 01/25/17 07:46 Bedside Glucose 190 139 170 White Blood Count 6.5 Red Blood Count 3.73 L Hemoglobin 10.3 L Hematocrit 30.2 L Mean Corpuscular Volume 81.0 L Mean Corpuscular Hemoglobin 27.6 L Mean Corpuscular Hemoglobin Concent 34.1 Red Cell Distribution Width 13.5 Platelet Count 328 Mean Platelet Volume 9.8 Neutrophils % 76.6 Lymphocytes % 14.7 L Monocytes % 6.6 Eosinophils % 1.1 Basophils % 0.8 Nucleated Red Blood Cells % 0.0 Neutrophils # 5.0 Lymphocytes # 1.0 Monocytes # 0.4 Eosinophils # 0.1 Basophils # 0.1 Nucleated Red Blood Cells # 0.0 Sodium Level 133 L Potassium Level 3.8 Chloride Level 93 L Carbon Dioxide Level 29 Anion Gap 15 Blood Urea Nitrogen 12 Creatinine 0.78 Glucose Level 162 Calcium Level 8.8 Phosphorus Level 3.7 Magnesium Level 1.5 L Test 01/25/17 12:10 01/25/17 12:13 Prothrombin Time 33.2 #H Prothrombin Time Ratio 2.6 INR International Normalized Ratio 3.14 Hepatitis B Surface Antigen Pending Hepatitis B Core Total Antibody Pending Hepatitis C Antibody Pending Bedside Glucose 228 H Medications Medications Current Medications Amlodipine Besylate (Norvasc) 10 mg DAILY PO Last administered on 01/25/17 08 :08; Admin Dose 10 MG; Start 01/24/17 at 09:00 Calcium Carbonate (Oyster Shell Calcium) 1.25 gm BID PO Last administered on 08:08; Admin Dose 1.25 GM; Start 01/23/17 at 21:00 Diagnostic Test (Pha) (Accu-Chek) 1 ea 02 XX ; Start 01/24/17 at 02:00 Atorvastatin Calcium (Lipitor) 40 mg HS PO Last administered on 01/24/17 21: 33; Admin Dose 40 MG; Start 01/23/17 at 21:00 Lorazepam (Ativan) 0.5 mg Q8H PRN PO ANXIETY; Start 01/23/17 at 18:00 Ondansetron HCl (Zofran Inj) 4 mg Q6H PRN IV NAUSEA AND/OR VOMITING; Start at 18:00 Acetaminophen (Tylenol Tab) 650 mg Q6H PRN PO PAIN LEVEL 1-3 OR FEVER; Start 01/23/17 at 18:00 Acetaminophen/ Hydrocodone Bitart ([place] (5/325)) 1 tab Q6H PRN PO PAIN LEVEL 4 -6; Start 01/23/17 at 18:00 Morphine Sulfate (morphine) 6 mg Q4H PRN PO PAIN LEVEL 7-10; Start 01/23/17 at 18:00 Bisacodyl (Dulcolax) 5 mg DAILY PRN PO CONSTIPATION; Start 01/23/17 at 18:00 Pantoprazole (Protonix Tab) 40 mg DAILY@06 PO Last administered on 01/25/17 05:52; Admin Dose 40 MG; Start 01/24/17 at 06:00 Labetalol HCl (Labetalol) 10 mg Q4H PRN IV SBP >160; Start 01/23/17 at 18:00 Miscellaneous Information 1 ea NOTE XX ; Start 01/23/17 at 19:30 Glucose (Glutose) 15 gm Q15M PRN PO DECREASED GLUCOSE; Start 01/23/17 at 19:30 Glucose (Glutose) 22.5 gm Q15M PRN PO DECREASED GLUCOSE; Start 01/23/17 at 19: 30 Dextrose (D50w Syringe) 25 ml Q15M PRN IV DECREASED GLUCOSE; Start 01/23/17 at 19:30 Dextrose (D50w Syringe) 50 ml Q15M PRN IV DECREASED GLUCOSE; Start 01/23/17 at 19:30 Glucagon (Glucagen) 1 mg Q15M PRN IM DECREASED GLUCOSE; Start 01/23/17 at 19: 30 Glucose (Glutose) 15 gm Q15M PRN BUCCAL DECREASED GLUCOSE; Start 01/23/17 at 19:30 Digoxin 0.125 mg 0.125 mg DAILY@13 PO Last administered on 01/25/17 12:15; Admin Dose 0.125 MG; Start 01/24/17 at 13:00 Ferric Sodium Gluconate Complex/ Sodium Chloride (Ferrlecit/NS) 110 ml @ 100 mls/hr Q24H IVPB Last administered on 01/24/17 13:35; Admin Dose 100 MLS/HR; Start 01/24/17 at 12:00; Stop 01/26/17 at 13:05 Metoprolol Succinate (Toprol Xl) 50 mg BID PO Last administered on 01/25/17 08:08; Admin Dose 50 MG; Start 01/24/17 at 21:00 Furosemide 40 mg 40 mg 1550 ONCE IV ; Start 01/25/17 at 15:50; Stop 01/25/17 at 15:51 Albumin Human (Albumin Human 25%) 100 ml @ 100 mls/hr ONCE ONCE IV ; Start at 13:00; Stop 01/25/17 at 13:59 Kendall Ann DO Jan 25, 2017 13:02
--- NOTE | 2017-01-25 14:19 | PN ---
Date/Time of Note Date/Time of Note DATE: 01/25/17 TIME: 14:14 Assessment/Plan VTE Prophylaxis VTE Prophylaxis Intervention: SCD's Lines/Catheters IV Catheter Type (from Nrs): Saline Lock Assessment/Plan Chief Complaint/Hosp Course subjective 12.20 patient feeling much better 12. still has distended abdomen Objective Physical exam General: Patient is laying in bed and answers questions appropriately Mentation: Patient is alert and oriented 4, Head: Normocephalic atraumatic Eyes: EOMI, pupils reactive to light Neck: Supple, nontender, midline Respiratory: Clear to auscultation bilaterally Cardiovascular: regular rate, no obvious murmurs Gastrointestinal: non-tender to palpation, bowel sounds heard. distended abdomen. Neurological: Moves all extremities spontaneously Skin: 1+ pitting edema bilat LE Assessment and plan A. fib with RVR -Patient has a history of recently diagnosed A. fib, continue metoprolol, cardiology added digoxin -Echo noted per cardiology -2 view chest x-ray showing possible COPD -Questionable etiology, mag is low, but abdominal distention -US showing large ascites -echo not showing significant right sided disease -repeat US of liver, as well as paracentesis ordered Ascites -? source -? liver source, INR elevated now, vit K given for paracentesis tomorrow -workup for cirrhosis -ast/alt/bili fine for now -SBP prophylaxis cipro/flagyl for now until after para -albumin right before para given likely large volume Acute on chronic systolic congestive heart failure -Repeat echo noted -Cardiology recommendations appreciated -BNP is elevated, IV Lasix for now, we will transition to p.o. when ok with cards Diabetes mellitus -Insulin sliding scale Dyslipidemia -Atorvastatin instead of pravastatin due to formulary Hypertension -Continue home medications CVA -Questionable true CVA, patient on aspirin and xarelto at home, cardiology recommendations appreciated Disposition -med optimization -f/u with paracentesis studies after done, holding until later today or tmrw -holding xarelto for now for paracentesis, vit K for elevated INR Problems: Exam/Review of Systems Vital Signs Vitals Vital Signs Date Time Temp Pulse Resp B/P Pulse Ox O2 Delivery O2 Flow Rate FiO2 01/25/17 12:08 88 01/25/17 11:52 97.3 17 126/71 94 01/23/17 16:57 Room Air Intake and Output 01/24/17 01/24/17 01/25/17 15:00 23:00 07:00 Intake Total 400 ml 450 ml Balance 400 ml 450 ml Results Result Diagram: 01/25/17 0706 01/25/17 0706 Results 24 hrs Laboratory Tests Test 01/24/17 17:25 01/24/17 21:37 01/25/17 07:06 01/25/17 07:46 Bedside Glucose 190 139 170 White Blood Count 6.5 Red Blood Count 3.73 L Hemoglobin 10.3 L Hematocrit 30.2 L Mean Corpuscular Volume 81.0 L Mean Corpuscular Hemoglobin 27.6 L Mean Corpuscular Hemoglobin Concent 34.1 Red Cell Distribution Width 13.5 Platelet Count 328 Mean Platelet Volume 9.8 Neutrophils % 76.6 Lymphocytes % 14.7 L Monocytes % 6.6 Eosinophils % 1.1 Basophils % 0.8 Nucleated Red Blood Cells % 0.0 Neutrophils # 5.0 Lymphocytes # 1.0 Monocytes # 0.4 Eosinophils # 0.1 Basophils # 0.1 Nucleated Red Blood Cells # 0.0 Sodium Level 133 L Potassium Level 3.8 Chloride Level 93 L Carbon Dioxide Level 29 Anion Gap 15 Blood Urea Nitrogen 12 Creatinine 0.78 Glucose Level 162 Calcium Level 8.8 Phosphorus Level 3.7 Magnesium Level 1.5 L Test 01/25/17 12:10 01/25/17 12:13 Prothrombin Time 33.2 #H Prothrombin Time Ratio 2.6 INR International Normalized Ratio 3.14 Hepatitis B Surface Antigen Pending Hepatitis B Core Total Antibody Pending Hepatitis C Antibody Pending Bedside Glucose 228 H Medications Medications Current Medications Calcium Carbonate (Oyster Shell Calcium) 1.25 gm BID PO Last administered on 08:08; Admin Dose 1.25 GM; Start 01/23/17 at 21:00 Diagnostic Test (Pha) (Accu-Chek) 1 ea 02 XX ; Start 01/24/17 at 02:00 Atorvastatin Calcium (Lipitor) 40 mg HS PO Last administered on 01/24/17 21: 33; Admin Dose 40 MG; Start 01/23/17 at 21:00 Lorazepam (Ativan) 0.5 mg Q8H PRN PO ANXIETY; Start 01/23/17 at 18:00 Ondansetron HCl (Zofran Inj) 4 mg Q6H PRN IV NAUSEA AND/OR VOMITING; Start at 18:00 Acetaminophen (Tylenol Tab) 650 mg Q6H PRN PO PAIN LEVEL 1-3 OR FEVER; Start 01/23/17 at 18:00 Acetaminophen/ Hydrocodone Bitart ([place] (5/325)) 1 tab Q6H PRN PO PAIN LEVEL 4 -6; Start 01/23/17 at 18:00 Morphine Sulfate (morphine) 6 mg Q4H PRN PO PAIN LEVEL 7-10; Start 01/23/17 at 18:00 Bisacodyl (Dulcolax) 5 mg DAILY PRN PO CONSTIPATION; Start 01/23/17 at 18:00 Pantoprazole (Protonix Tab) 40 mg DAILY@06 PO Last administered on 01/25/17 05:52; Admin Dose 40 MG; Start 01/24/17 at 06:00 Labetalol HCl (Labetalol) 10 mg Q4H PRN IV SBP >160; Start 01/23/17 at 18:00 Miscellaneous Information 1 ea NOTE XX ; Start 01/23/17 at 19:30 Glucose (Glutose) 15 gm Q15M PRN PO DECREASED GLUCOSE; Start 01/23/17 at 19:30 Glucose (Glutose) 22.5 gm Q15M PRN PO DECREASED GLUCOSE; Start 01/23/17 at 19: 30 Dextrose (D50w Syringe) 25 ml Q15M PRN IV DECREASED GLUCOSE; Start 01/23/17 at 19:30 Dextrose (D50w Syringe) 50 ml Q15M PRN IV DECREASED GLUCOSE; Start 01/23/17 at 19:30 Glucagon (Glucagen) 1 mg Q15M PRN IM DECREASED GLUCOSE; Start 01/23/17 at 19: 30 Glucose (Glutose) 15 gm Q15M PRN BUCCAL DECREASED GLUCOSE; Start 01/23/17 at 19:30 Digoxin 0.125 mg 0.125 mg DAILY@13 PO Last administered on 01/25/17 12:15; Admin Dose 0.125 MG; Start 01/24/17 at 13:00 Ferric Sodium Gluconate Complex/ Sodium Chloride (Ferrlecit/NS) 110 ml @ 100 mls/hr Q24H IVPB Last administered on 01/24/17 13:35; Admin Dose 100 MLS/HR; Start 01/24/17 at 12:00; Stop 01/26/17 at 13:05 Metoprolol Succinate (Toprol Xl) 50 mg BID PO Last administered on 01/25/17t 08:08; Admin Dose 50 MG; Start 01/24/17 at 21:00 Furosemide (Lasix) 40 mg 1550 ONCE IV ; Start 01/25/17 at 15:50; Stop at 15:51 Amlodipine Besylate 5 mg 5 mg DAILY PO ; Start 01/26/17 at 09:00 Ciprofloxacin/ Dextrose 200 ml @ 200 mls/hr Q12 IVPB ; Start 01/25/17 at 21:00 ; Status UNV Metronidazole (Flagyl 500 Mg (Pmx)) 100 ml @ 100 mls/hr Q8 IVPB ; Start at 22:00; Status UNV Phytonadione (Vitamin K) 10 mg ONCE ONCE SC ; Start 01/25/17 at 14:30; Stop 01/25/17 at 14:31; Status UNV LISA BARNETT Jan 25, 2017 14:19
[2017-01-25] MEDS ORDERED: PHYTONADIONE 10 MG/ML INJ SC ONE (14:30)
[2017-01-25] MEDS: SOD FERRIC GLUC COMPLX 125 MG in SOD CHLORIDE 0.9% 100 ML IVPB SCH (14:38)
[2017-01-25] MEDS ORDERED: FUROSEMIDE 20 MG INJ IV ONE (15:50)
--- NOTE | 2017-01-25 16:51 | RADRPT ---
PROCEDURE: US Abdomen (right upper quadrant). CLINICAL INDICATION: Elevated liver function tests. TECHNIQUE: Multiple real-time longitudinal and transverse images of the right upper quadrant of th e abdomen were acquired utilizing a curved array transducer. Images were reviewed on a high-resoluti on PACS workstation. COMPARISON: None FINDINGS: The liver is normal in size and mildly diffusely heterogeneous. The liver has a nodular surface cons istent with cirrhosis. There is no focal hepatic lesion. Color Doppler and pulsed Doppler sonography demonstrate normal a ntegrade flow in the portal vein. The gallbladder is not visualized indicating it may be surgically absent. The bile ducts are normal with the common bile duct measuring 5.6 mm in diameter. The visualized portions of the pancreas are unremarkable with obscuration of the tail of the pancrea s. No free fluid is present. The right kidney measures 11.8 cm. There is normal echogenicity of the right kidney. There is no perinephric fluid collection. No hydronephrosis, mass, or calculus is seen. IMPRESSION: 1. Nodular liver consistent with cirrhosis. 2. Gallbladder not visualized indicating it may be surgically absent. 3. Otherwise unremarkable right upper quadrant abdomen ultrasound. RPTAT: QQ .Nader Luque MD, MD Date Time Electronically viewed and signed by .Nader Luque MD, on 01/25/2017 16:51 .R/
[2017-01-25] MEDS ORDERED: LIDOCAINE 1% (MPF) 5 ML VIAL ONE (16:58)
--- NOTE | 2017-01-25 17:55 | RADRPT ---
PROCEDURE: Ultrasound guided paracentesis. CLINICAL INDICATION: Ascites and shortness of breath. COMPARISON: No prior studies are available for comparison. TECHNIQUE: The risks, benefits, and alternatives were explained to the patient and/or the patient's family, inc luding but not limited to bleeding, infection, pain, visceral or vascular damage, shock, and . The patient and/or the patient's family understood the risks and the alternatives and wished to pro ceed with the procedure. Informed written consent was obtained. A procedural time out was performed . The patient's name, date of , and procedure to be performed were verified. Utilizing ultrasound guidance, optimal location for entry to the peritoneal cavity was ascertained. The overlying skin was prepped and draped in the usual sterile fashion. Approximately 10 ml of 1% Xylocaine was injected locally for pain control. Using ultrasound guidance, an 8 [place] catheter wa s introduced into the peritoneal cavity in the right lower quadrant without difficulty. FINDINGS: Initial images demonstrate ascites. Approximately 1.35 liters of serous fluid was aspirated and sen t for laboratory analysis. The patient tolerated the procedure well without complication. IMPRESSION: 1. Successful ultrasound-guided paracentesis. RPTAT: QQ .Nader Luque MD, Date Time Electronically viewed and signed by .Nader Luque MD, on 01/25/2017 17:54 .R/
[2017-01-25 18:47] LABS: FLD MN% 95.5 %; FLD PMN% 4.5 %; FLD RBC 3000 /uL; FLD WBC 415 /cmm
[2017-01-25 18:58] LABS: FLUID AMYLASE < 30 U/L; FLUID GLUCOSE 170 mg/dl; FLUID LD 144 U/L; FLUID TOTAL PROTEIN 3.9 g/dl; FLUID TYPE ASCITES FLUID; FLUID TYPE ASCITIES FLUID
[2017-01-25 19:30] LABS: FLD CLARITY CLOUDY; FLD COLOR YELLOW
[2017-01-25 19:31] LABS: FLD TYPE ASCITES
[2017-01-25] MEDS: CIPROFLOXACIN 400MG/D5W 200 ML IVPB SCH (21:24)
[2017-01-25] MEDS: ATORVASTATIN 40 MG TAB PO SCH (21:26)
[2017-01-25] MEDS: metroNIDAZOLE 500 MG/NS (PMX) 100 ML IVPB SCH (22:53)
[2017-01-26] VITALS (11 sets, daily range): BP systolic 117–135; BP diastolic 58–69; PULSE 79–85; RESP 18–20
[2017-01-26] MEDS: ACCU-CHEK XX SCH (02:00)
[2017-01-26] MEDS: metroNIDAZOLE 500 MG/NS (PMX) 100 ML IVPB SCH ×3 (06:36→21:30)
[2017-01-26] MEDS: PANTOPRAZOLE (EC) 40 MG TAB PO SCH (06:36)
[2017-01-26] MEDS: FUROSEMIDE 20 MG INJ IV SCH (06:37)
[2017-01-26] MEDS: CALCIUM CARBONATE 1.25 GM TAB PO SCH ×2 (08:17→21:31)
[2017-01-26] MEDS: METOPROLOL (XL) 50 MG TAB PO SCH ×2 (08:22→21:33)
[2017-01-26] MEDS: AMLODIPINE 5 MG TAB PO SCH (08:22)
[2017-01-26] MEDS: CIPROFLOXACIN 400MG/D5W 200 ML IVPB SCH ×2 (08:22→21:51)
[2017-01-26] MEDS: INSULIN ASPART [NOVOLOG] 3 ML PEN SC SCH ×4 (08:28→21:00)
[2017-01-26] MEDS: INSULIN GLARGINE [LANtus] 3 ML PEN SC SCH (08:28)
[2017-01-26 09:44] LABS: BASOPHILS % 0.8 % (0.0-2.0); EOSINOPHILS # 0.1 10^3/ul (0.0-0.5); HEMATOCRIT 30.5 % (37.0-47.0); HEMOGLOBIN 10.3 g/dl (12.0-16.0); LYMPHOCYTES # 0.6 10^3/ul (0.8-2.9); LYMPHOCYTES % 12.9 % (15.0-51.0); MEAN CORPUSCULAR HEMOGLOBIN 27.8 pg (29.0-33.0); MEAN CORPUSCULAR HGB CONC 33.8 g/dl (32.0-37.0); MEAN CORPUSCULAR VOLUME 82.2 fl (82.0-101.0); MEAN PLATELET VOLUME 9.5 fl (7.4-10.4); MONOCYTE # 0.3 10^3/ul (0.3-0.9); MONOCYTES % 6.5 % (0.0-11.0); NEUTROPHIL # 3.9 10^3/ul (1.6-7.5); NEUTROPHILS % 78.6 % (39.0-77.0); PLATELET COUNT 308 10^3/UL (140-415); RED BLOOD COUNT 3.71 10^6/ul (4.20-5.40); RED CELL DISTRIBUTION WIDTH 13.2 % (11.5-14.5)
[2017-01-26 10:13] LABS: INR 2.12; PROTIME 24.3 Sec (11.9-14.9); PT RATIO 1.9
[2017-01-26 10:34] LABS: ALBUMIN 3.6 g/dl (3.3-4.9); ALBUMIN/GLOBULIN RATIO 1.28; BILIRUBIN,INDIRECT 0.4 mg/dl (0-1.1); BILIRUBIN,TOTAL 0.4 mg/dl (0.2-1.3); CALCIUM 8.9 mg/dl (8.4-10.2); CREATININE 0.75 mg/dl (0.44-1.00); TOTAL PROTEIN 6.4 g/dl (6.1-8.1)
[2017-01-26 10:36] LABS: HEPATITIS B CORE ANTIBODY NEGATIVE (NEGATIVE)
[2017-01-26] MEDS ORDERED: POTASSIUM CHLORIDE (SR) 20 MEQ TAB PO STA (11:22)
--- NOTE | 2017-01-26 11:27 | CONS ---
Date/Time of Note Date/Time of Note DATE: 01/26/17 TIME: 11:25 Assessment/Plan Assessment/Plan Additional Assessment/Plan Acute decompensated systolic and diastolic congestive heart failure Cardiomyopathy with ejection fraction 50% Atrial fibrillation Hypertension Ascites, status post paracentesis -Patient with improvement in edema with IV diuretics, extra dose of Lasix this afternoon and switch over to p.o. We will start Aldactone, supplement potassium to maintain above 4.0 and magnesium above 2.0. Patient undergoing liver workup given recurrent ascites. Heart rate well controlled. Consultation Date/Type/Reason Admit Date/Time Jan 23, 2017 at 15:59 Initial Consult Date 01/23/17 Type of Consultation: cv 24 HR Interval Summary Free Text/Dictation Shortness of breath is better and lower extremity edema. Patient status post paracentesis Exam/Review of Systems Vital Signs Vitals Vital Signs Date Time Temp Pulse Resp B/P Pulse Ox O2 Delivery O2 Flow Rate FiO2 01/26/17 08:26 85 01/26/17 08:16 99.0 18 135/59 93 01/23/17 16:57 Room Air Intake and Output 01/25/17 01/25/17 01/26/17 15:00 23:00 07:00 Intake Total 150 ml 910 ml 420 ml Balance 150 ml 910 ml 420 ml Exam No apparent distress, sitting in chair Constitutional: alert, oriented Head: normocephalic Respiratory: other (Coarse breath sounds bilaterally, no wheezing) Cardiovascular: irregular rhythm, other (S1-S2 heard) Gastrointestinal: bowel sounds, non-tender, soft Extremities: edema Results Result Diagram: 01/26/17 0916 01/26/17 0916 Results 24 hrs Laboratory Tests Test 01/25/17 12:10 01/25/17 12:13 01/25/17 16:00 01/25/17 17:11 Prothrombin Time 33.2 #H Prothrombin Time Ratio 2.6 INR International Normalized Ratio 3.14 Lactate Dehydrogenase 379 Rheumatoid Factor Screen NEGATIVE Hepatitis B Surface Antigen NEGATIVE Hepatitis B Core Total Antibody NEGATIVE Hepatitis C Antibody NEGATIVE Bedside Glucose 228 H 177 Body Fluid Type ASCITES Body Fluid Volume 1100.0 Body Fluid Color YELLOW Body Fluid Appearance CLOUDY Body Fluid WBC 415 Body Fluid RBC (Auto) 3000 Body Fluid Polynuclear WBCs (%) 4.5 Body Fluid Mononuclear Cells % Auto 95.5 Body Fluid Glucose 170 Body Fluid Total Protein 3.9 Body Fluid Lactate Dehydrogenase 144 Body Fluid Amylase < 30 Test 01/25/17 21:35 01/26/17 02:58 01/26/17 08:08 01/26/17 09:16 Bedside Glucose 205 188 182 White Blood Count 5.0 # Red Blood Count 3.71 L Hemoglobin 10.3 L Hematocrit 30.5 L Mean Corpuscular Volume 82.2 Mean Corpuscular Hemoglobin 27.8 L Mean Corpuscular Hemoglobin Concent 33.8 Red Cell Distribution Width 13.2 Platelet Count 308 Mean Platelet Volume 9.5 Neutrophils % 78.6 H Lymphocytes % 12.9 L Monocytes % 6.5 Eosinophils % 1.0 Basophils % 0.8 Nucleated Red Blood Cells % 0.0 Neutrophils # 3.9 Lymphocytes # 0.6 L Monocytes # 0.3 Eosinophils # 0.1 Basophils # 0.0 Nucleated Red Blood Cells # 0.0 Prothrombin Time 24.3 #H Prothrombin Time Ratio 1.9 INR International Normalized Ratio 2.12 Sodium Level 133 L Potassium Level 3.0 L Chloride Level 90 L Carbon Dioxide Level 31 Anion Gap 15 Blood Urea Nitrogen 12 Creatinine 0.75 Glucose Level 158 Calcium Level 8.9 Magnesium Level 1.4 L Total Bilirubin 0.4 Direct Bilirubin 0.00 Indirect Bilirubin 0.4 Aspartate Amino Transf (AST/SGOT) 21 Alanine Aminotransferase (ALT/SGPT) 28 Alkaline Phosphatase 47 Ammonia < 9 L Total Protein 6.4 Albumin 3.6 Globulin 2.80 Albumin/Globulin Ratio 1.28 Medications Medications Current Medications Calcium Carbonate (Oyster Shell Calcium) 1.25 gm BID PO Last administered on 08:17; Admin Dose 1.25 GM; Start 01/23/17 at 21:00 Diagnostic Test (Pha) (Accu-Chek) 1 ea 02 XX Last administered on 01/26/17 02 :00; Admin Dose 1 EA; Start 01/24/17 at 02:00 Atorvastatin Calcium (Lipitor) 40 mg HS PO Last administered on 01/25/17 21: 26; Admin Dose 40 MG; Start 01/23/17 at 21:00 Lorazepam (Ativan) 0.5 mg Q8H PRN PO ANXIETY; Start 01/23/17 at 18:00 Ondansetron HCl (Zofran Inj) 4 mg Q6H PRN IV NAUSEA AND/OR VOMITING; Start at 18:00 Acetaminophen (Tylenol Tab) 650 mg Q6H PRN PO PAIN LEVEL 1-3 OR FEVER; Start 01/23/17 at 18:00 Acetaminophen/ Hydrocodone Bitart ([place] (5/325)) 1 tab Q6H PRN PO PAIN LEVEL 4 -6; Start 01/23/17 at 18:00 Morphine Sulfate (morphine) 6 mg Q4H PRN PO PAIN LEVEL 7-10; Start 01/23/17 at 18:00 Bisacodyl (Dulcolax) 5 mg DAILY PRN PO CONSTIPATION; Start 01/23/17 at 18:00 Pantoprazole (Protonix Tab) 40 mg DAILY@06 PO Last administered on 01/26/17 06:36; Admin Dose 40 MG; Start 01/24/17 at 06:00 Labetalol HCl (Labetalol) 10 mg Q4H PRN IV SBP >160; Start 01/23/17 at 18:00 Miscellaneous Information 1 ea NOTE XX ; Start 01/23/17 at 19:30 Glucose (Glutose) 15 gm Q15M PRN PO DECREASED GLUCOSE; Start 01/23/17 at 19:30 Glucose (Glutose) 22.5 gm Q15M PRN PO DECREASED GLUCOSE; Start 01/23/17 at 19: 30 Dextrose (D50w Syringe) 25 ml Q15M PRN IV DECREASED GLUCOSE; Start 01/23/17 at 19:30 Dextrose (D50w Syringe) 50 ml Q15M PRN IV DECREASED GLUCOSE; Start 01/23/17 at 19:30 Glucagon (Glucagen) 1 mg Q15M PRN IM DECREASED GLUCOSE; Start 01/23/17 at 19: 30 Glucose (Glutose) 15 gm Q15M PRN BUCCAL DECREASED GLUCOSE; Start 01/23/17 at 19:30 Digoxin 0.125 mg 0.125 mg DAILY@13 PO Last administered on 01/25/17 12:15; Admin Dose 0.125 MG; Start 01/24/17 at 13:00 Ferric Sodium Gluconate Complex/ Sodium Chloride (Ferrlecit/NS) 110 ml @ 100 mls/hr Q24H IVPB Last administered on 01/25/17 14:38; Admin Dose 100 MLS/HR; Start 01/24/17 at 12:00; Stop 01/26/17 at 13:05 Metoprolol Succinate (Toprol Xl) 50 mg BID PO Last administered on 01/26/17 08:22; Admin Dose 50 MG; Start 01/24/17 at 21:00 Amlodipine Besylate 5 mg 5 mg DAILY PO Last administered on 01/26/17 08:22; Admin Dose 5 MG; Start 01/26/17 at 09:00 Ciprofloxacin/ Dextrose 200 ml @ 200 mls/hr Q12 IVPB Last administered on 08:22; Admin Dose 200 MLS/HR; Start 01/25/17 at 21:00 Metronidazole (Flagyl 500 Mg (Pmx)) 100 ml @ 100 mls/hr Q8 IVPB Last administered on 01/26/17 06:36; Admin Dose 100 MLS/HR; Start 01/25/17 at 22: 00 Insulin Glargine (Lantus) 10 unit DAILY@08 SC Last administered on 01/26/17 08:28; Admin Dose 10 UNIT; Start 01/26/17 at 08:00 Kendall Ann DO Jan 26, 2017 11:27
[2017-01-26] MEDS: SOD FERRIC GLUC COMPLX 125 MG in SOD CHLORIDE 0.9% 100 ML IVPB SCH (11:59)
[2017-01-26] MEDS: SPIRONOLACTONE 25 MG TAB PO SCH (12:20)
[2017-01-26] MEDS ORDERED: MAGNESIUM SULFATE 3 GM in DEXTROSE 5% 100 ML IVPB ONE (13:00)
[2017-01-26] MEDS: DIGOXIN 0.125 MG TAB PO SCH (13:19)
[2017-01-26 14:07] LABS: ANA SCREEN NEGATIVE (NEGATIVE)
--- NOTE | 2017-01-26 16:01 | PN ---
Date/Time of Note Date/Time of Note DATE: 01/26/17 TIME: 15:59 Assessment/Plan VTE Prophylaxis VTE Prophylaxis Intervention: ambulation, SCD's Lines/Catheters IV Catheter Type (from Nrs): Saline Lock Assessment/Plan Chief Complaint/Hosp Course subjective 12.20 patient feeling much better 12.21 still has distended abdomen 12.22 no acute complaints Objective Physical exam General: Patient is laying in bed and answers questions appropriately Mentation: Patient is alert and oriented 4, Head: Normocephalic atraumatic Eyes: EOMI, pupils reactive to light Neck: Supple, nontender, midline Respiratory: Clear to auscultation bilaterally Cardiovascular: regular rate, no obvious murmurs Gastrointestinal: non-tender to palpation, bowel sounds heard. less distended abdomen. Neurological: Moves all extremities spontaneously Skin: 1+ pitting edema bilat LE Assessment and plan A. fib with RVR -Patient has a history of recently diagnosed A. fib, continue metoprolol, cardiology added digoxin -Echo noted per cardiology -2 view chest x-ray showing possible COPD -Questionable etiology, mag was low, likely etiology abdominal distention -US showing large ascites -echo not showing significant right sided disease -paracentesis done yesterday, still pending some vital labs including albumin from ascites to make diagnosis possible Ascites -? source -? liver source, INR elevated -workup for cirrhosis -ast/alt/bili fine for now -SBP prophylaxis cipro/flagyl for now -albumin right before para given likely large volume -need full workup to return Acute on chronic systolic congestive heart failure -Repeat echo noted -Cardiology recommendations appreciated -BNP is elevated, IV Lasix for now, we will transition to p.o. when ok with cards Diabetes mellitus -Insulin sliding scale Dyslipidemia -Atorvastatin instead of pravastatin due to formulary Hypertension -Continue home medications CVA -Questionable true CVA, patient on aspirin and xarelto at home, cardiology recommendations appreciated Disposition -med optimization -f/u with paracentesis studies, still many pending Problems: Exam/Review of Systems Vital Signs Vitals Vital Signs Date Time Temp Pulse Resp B/P Pulse Ox O2 Delivery O2 Flow Rate FiO2 01/26/17 12:12 98.4 55 20 126/69 94 01/23/17 16:57 Room Air Intake and Output 12/21/17 12/21/17 12/22/17 15:00 23:00 07:00 Intake Total 150 ml 910 ml 420 ml Balance 150 ml 910 ml 420 ml Results Result Diagram: 01/26/17 0916 01/26/17 0916 Results 24 hrs Laboratory Tests Test 01/25/17 16:00 01/25/17 17:11 01/25/17 21:35 01/26/17 02:58 Body Fluid Type ASCITES Body Fluid Volume 1100.0 Body Fluid Color YELLOW Body Fluid Appearance CLOUDY Body Fluid WBC 415 Body Fluid RBC (Auto) 3000 Body Fluid Polynuclear WBCs (%) 4.5 Body Fluid Mononuclear Cells % Auto 95.5 Body Fluid Glucose 170 Body Fluid Total Protein 3.9 Body Fluid Lactate Dehydrogenase 144 Body Fluid Amylase < 30 Bedside Glucose 177 205 188 Test 01/26/17 08:08 01/26/17 09:16 01/26/17 11:58 Bedside Glucose 182 145 White Blood Count 5.0 # Red Blood Count 3.71 L Hemoglobin 10.3 L Hematocrit 30.5 L Mean Corpuscular Volume 82.2 Mean Corpuscular Hemoglobin 27.8 L Mean Corpuscular Hemoglobin Concent 33.8 Red Cell Distribution Width 13.2 Platelet Count 308 Mean Platelet Volume 9.5 Neutrophils % 78.6 H Lymphocytes % 12.9 L Monocytes % 6.5 Eosinophils % 1.0 Basophils % 0.8 Nucleated Red Blood Cells % 0.0 Neutrophils # 3.9 Lymphocytes # 0.6 L Monocytes # 0.3 Eosinophils # 0.1 Basophils # 0.0 Nucleated Red Blood Cells # 0.0 Prothrombin Time 24.3 #H Prothrombin Time Ratio 1.9 INR International Normalized Ratio 2.12 Sodium Level 133 L Potassium Level 3.0 L Chloride Level 90 L Carbon Dioxide Level 31 Anion Gap 15 Blood Urea Nitrogen 12 Creatinine 0.75 Glucose Level 158 Calcium Level 8.9 Magnesium Level 1.4 L Total Bilirubin 0.4 Direct Bilirubin 0.00 Indirect Bilirubin 0.4 Aspartate Amino Transf (AST/SGOT) 21 Alanine Aminotransferase (ALT/SGPT) 28 Alkaline Phosphatase 47 Ammonia < 9 L Total Protein 6.4 Albumin 3.6 Globulin 2.80 Albumin/Globulin Ratio 1.28 Medications Medications Current Medications Calcium Carbonate (Oyster Shell Calcium) 1.25 gm BID PO Last administered on t 08:17; Admin Dose 1.25 GM; Start 01/23/17 at 21:00 Diagnostic Test (Pha) (Accu-Chek) 1 ea 02 XX Last administered on 01/26/17 02 :00; Admin Dose 1 EA; Start 01/24/17 at 02:00 Atorvastatin Calcium (Lipitor) 40 mg HS PO Last administered on 01/25/17 21: 26; Admin Dose 40 MG; Start 01/23/17 at 21:00 Lorazepam (Ativan) 0.5 mg Q8H PRN PO ANXIETY; Start 01/23/17 at 18:00 Ondansetron HCl (Zofran Inj) 4 mg Q6H PRN IV NAUSEA AND/OR VOMITING; Start at 18:00 Acetaminophen (Tylenol Tab) 650 mg Q6H PRN PO PAIN LEVEL 1-3 OR FEVER; Start 01/23/17 at 18:00 Acetaminophen/ Hydrocodone Bitart ([place] (5/325)) 1 tab Q6H PRN PO PAIN LEVEL 4 -6; Start 01/23/17 at 18:00 Morphine Sulfate (morphine) 6 mg Q4H PRN PO PAIN LEVEL 7-10; Start 01/23/17 at 18:00 Bisacodyl (Dulcolax) 5 mg DAILY PRN PO CONSTIPATION; Start 01/23/17 at 18:00 Pantoprazole (Protonix Tab) 40 mg DAILY@06 PO Last administered on 01/26/17 06:36; Admin Dose 40 MG; Start 01/24/17 at 06:00 Labetalol HCl (Labetalol) 10 mg Q4H PRN IV SBP >160; Start 01/23/17 at 18:00 Miscellaneous Information 1 ea NOTE XX ; Start 01/23/17 at 19:30 Glucose (Glutose) 15 gm Q15M PRN PO DECREASED GLUCOSE; Start 01/23/17 at 19:30 Glucose (Glutose) 22.5 gm Q15M PRN PO DECREASED GLUCOSE; Start 01/23/17 at 19: 30 Dextrose (D50w Syringe) 25 ml Q15M PRN IV DECREASED GLUCOSE; Start 01/23/17 at 19:30 Dextrose (D50w Syringe) 50 ml Q15M PRN IV DECREASED GLUCOSE; Start 01/23/17 at 19:30 Glucagon (Glucagen) 1 mg Q15M PRN IM DECREASED GLUCOSE; Start 01/23/17 at 19: 30 Glucose (Glutose) 15 gm Q15M PRN BUCCAL DECREASED GLUCOSE; Start 01/23/17 at 19:30 Digoxin (Digoxin) 0.125 mg DAILY@13 PO Last administered on 01/26/17 13:19; Admin Dose 0.125 MG; Start 01/24/17 at 13:00 Metoprolol Succinate (Toprol Xl) 50 mg BID PO Last administered on 01/26/17 08:22; Admin Dose 50 MG; Start 01/24/17 at 21:00 Amlodipine Besylate 5 mg 5 mg DAILY PO Last administered on 01/26/17 08:22; Admin Dose 5 MG; Start 01/26/17 at 09:00 Ciprofloxacin/ Dextrose 200 ml @ 200 mls/hr Q12 IVPB Last administered on 08:22; Admin Dose 200 MLS/HR; Start 01/25/17 at 21:00 Metronidazole (Flagyl 500 Mg (Pmx)) 100 ml @ 100 mls/hr Q8 IVPB Last administered on 01/26/17 13:19; Admin Dose 100 MLS/HR; Start 01/25/17 at 22: 00 Insulin Glargine (Lantus) 10 unit DAILY@08 SC Last administered on 01/26/17 08:28; Admin Dose 10 UNIT; Start 01/26/17 at 08:00 Potassium Chloride 40 meq 40 meq 19 ONCE PO ; Start 01/26/17 at 19:00; Stop 01/26/17 at 19:01 Magnesium Sulfate/ Dextrose (Magnesium Sulfate/D5W) 106 ml @ 35.333 mls/ hr ONCE ONCE IVPB Last administered on 01/26/17 14:27; Admin Dose 35.333 MLS/HR ; Start 01/26/17 at 13:00; Stop 01/26/17 at 15:59 Spironolactone (Aldactone) 25 mg DAILY@06 PO Last administered on 01/26/17 12 :20; Admin Dose 25 MG; Start 01/26/17 at 11:30 Furosemide (Lasix) 40 mg DAILY@06 PO ; Start 01/27/17 at 06:00 Furosemide (Lasix) 40 mg 18 ONCE IV ; Start 01/26/17 at 18:00; Stop 01/26/17 at 18:01 LISA ABRNETT Jan 26, 2017 16:01
[2017-01-26] MEDS: RIVAROXABAN 20 MG TABLET PO SCH (17:44)
[2017-01-26] MEDS ORDERED: FUROSEMIDE 40 MG INJ IV ONE (18:00)
[2017-01-26 18:31] LABS: MITOCHONDRIAL TB NEGATIVE (NEGATIVE)
[2017-01-26] MEDS ORDERED: POTASSIUM CHLORIDE (SR) 20 MEQ TAB PO ONE (19:00)
[2017-01-26] MEDS: ATORVASTATIN 40 MG TAB PO SCH (21:31)
[2017-01-27] VITALS (10 sets, daily range): BP systolic 107–125; BP diastolic 57–61; PULSE 71–97; RESP 18–20
[2017-01-27] MEDS: ACCU-CHEK XX SCH (02:00)
[2017-01-27] MEDS ORDERED: FUROSEMIDE 40 MG TAB PO SCH (06:00)
[2017-01-27] MEDS: SPIRONOLACTONE 25 MG TAB PO SCH (06:25)
[2017-01-27] MEDS: PANTOPRAZOLE (EC) 40 MG TAB PO SCH (06:25)
[2017-01-27] MEDS: metroNIDAZOLE 500 MG/NS (PMX) 100 ML IVPB SCH ×2 (06:26→15:00)
[2017-01-27 08:03] LABS: BASOPHIL # 0.1 10^3/ul (0.0-0.1); BASOPHILS % 0.8 % (0.0-2.0); EOSINOPHILS # 0.1 10^3/ul (0.0-0.5); EOSINOPHILS % 1.6 % (0.0-7.0); HEMATOCRIT 29.4 % (37.0-47.0); LYMPHOCYTES # 1.1 10^3/ul (0.8-2.9); LYMPHOCYTES % 17.7 % (15.0-51.0); MEAN CORPUSCULAR HEMOGLOBIN 27.2 pg (29.0-33.0); MEAN CORPUSCULAR VOLUME 80.1 fl (82.0-101.0); MEAN PLATELET VOLUME 10.2 fl (7.4-10.4); MONOCYTE # 0.5 10^3/ul (0.3-0.9); MONOCYTES % 7.7 % (0.0-11.0); NEUTROPHIL # 4.5 10^3/ul (1.6-7.5); PLATELET COUNT 313 10^3/UL (140-415); RED BLOOD COUNT 3.67 10^6/ul (4.20-5.40); RED CELL DISTRIBUTION WIDTH 13.4 % (11.5-14.5); WHITE BLOOD COUNT 6.3 10^3/ul (4.8-10.8)
[2017-01-27 08:17] LABS: CALCIUM 8.7 mg/dl (8.4-10.2); CREATININE 0.8 mg/dl (0.44-1.00); MAGNESIUM 1.6 mg/dl (1.7-2.5); PHOSPHORUS 3.8 mg/dl (2.5-4.9); POTASSIUM 3.9 mmol/L (3.5-5.1)
[2017-01-27] MEDS: CIPROFLOXACIN 400MG/D5W 200 ML IVPB SCH (08:24)
[2017-01-27] MEDS: INSULIN ASPART [NOVOLOG] 3 ML PEN SC SCH ×2 (08:27→12:04)
[2017-01-27] MEDS: INSULIN GLARGINE [LANtus] 3 ML PEN SC SCH (08:27)
[2017-01-27] MEDS: CALCIUM CARBONATE 1.25 GM TAB PO SCH (08:28)
[2017-01-27] MEDS: AMLODIPINE 5 MG TAB PO SCH (08:28)
[2017-01-27] MEDS: METOPROLOL (XL) 50 MG TAB PO SCH (08:28)
[2017-01-27] MEDS ORDERED: MAGNESIUM SULFATE 2 GM/50 ML 50 ML IVPB ONE (10:30)
[2017-01-27] MEDS ORDERED: SPIR25TA PO (11:11)
[2017-01-27] MEDS ORDERED: DIGO125T PO (11:11)
[2017-01-27] MEDS ORDERED: FURO40TA4 PO (11:11)
--- NOTE | 2017-01-27 11:13 | PDOCDIS ---
Discharge Instructions CONDITION Patient Condition: Stable HOME CARE INSTRUCTIONS: Special Diet: carb controlled FOLLOW UP/APPOINTMENTS Follow-up Plan 1. Note new medications or adjustments made to current medications, digoxin, furosemide, spironolactone 2. Follow up with a Liver specialist as soon as possible 3. follow up with lab results in 2 weeks, please belt picker from records department LISA BARNETT Jan 27, 2017 11:13
[2017-01-27] MEDS: DIGOXIN 0.125 MG TAB PO SCH (12:01)
--- NOTE | 2017-01-27 13:08 | DS ---
Date/Time of Note Date/Time of Note DATE: 01/27/17 TIME: 13:08 Discharge Summary Admission/Discharge Info Admit Date/Time Jan 23, 2017 at 15:59 Discharge Date/Time Patient Condition: Stable Hx of Present Illness Patient is a 76-year-old female with past medical history of recently diagnosed atrial fibrillation with RVR and mild to moderate congestive heart failure and diabetes mellitus who presents to [facility] for a approximate 2 day history of generalized weakness. Patient states that she feels a mild tightness in her chest and occasional palpitations, however patient does not feel any symptoms at this time. Patient states that her lower extremity has been more swollen than usual despite taking all her medications and following up with her primary care provider on a normal basis. Patient states that she recently changed her primary care provider. Patient was originally sent to an urgent care who recommended admission into the hospital. Currently patient denies any shortness of breath, nausea, vomiting, diarrhea, headache, chest pain. PMH: Congestive heart failure, diabetes mellitus, paroxysmal A. fib, dyslipidemia, questionable CVA, hypertension PSH: None Social: Denies Meds: See med rec Hospital Course Patient is a 76-year-old female who originally presented with symptoms of A. fib with RVR. Patient was seen by cardiology and medications were adjusted. Incidentally patient's abdomen was found to be distended and preliminary workup and imaging were done to have found large amounts of ascites. Labs initially were negative for any liver involvement however upon ultrasound, it was found that patient's liver had suggestion of cirrhosis. Patient's labs are within normal limits and it was explained very clearly to patient and patient's daughter that she would need to follow-up with a liver specialist as soon as possible and to follow-up with lab results within 2 weeks as many results were not available secondary to send out test. Patient will be discharged with appropriate medications including spironolactone and Lasix as well as other medications that were adjusted by cardiology. Patient is stable at this time and will follow up with her primary care provider and liver specialist as soon as possible. Home Meds Active Scripts Furosemide* (Furosemide*) 40 Mg Tablet, 40 MG PO DAILY@06 for 30 Days, #30 TAB Prov:LISA BARNETT 01/27/17 Spironolactone* (Aldactone*) 25 Mg Tablet, 25 MG PO DAILY@06 for 30 Days, #30 TAB Prov:LISA BARNETT J 01/27/17 Digoxin* (Digitek*) 125 Mcg Tablet, 0.125 MG PO DAILY@13 for 30 Days, #30 TAB Prov:LISA BARNETT J 01/27/17 Rivaroxaban* (Xarelto*) 20 Mg Tablet, 20 MG PO WITH DINNER for 60 Days, #60 TAB 5 Refills Prov:CRISTOBAL DYKES MD 12/21/16 Reported Medications Metoprolol Succinate* (Toprol XL*) 100 Mg Tab.sr.24h, 100 MG PO DAILY, #30 TAB 01/23/17 Aspirin* (Aspirin* Chew) 81 Mg Tab.chew, 81 MG PO DAILY, TAB.CHEW 01/23/17 Pravastatin Sodium* (Pravastatin Sodium*) 40 Mg Tablet, 40 MG PO HS, TAB 01/23/17 Amlodipine Besylate* (Amlodipine Besylate*) 10 Mg Tablet, 10 MG PO DAILY, #30 TAB 01/23/17 Calcium Carbonate ([id number]) 500 Mg Tablet, 500 MG PO BID, TAB 12/19/16 Metformin* (Glucophage*) 850 Mg Tablet, 850 MG PO WITH MEALS, #90 TAB 12/19/16 Glipizide* (Glipizide*) 5 Mg Tablet, 5 MG PO DAILY, TAB 12/19/16 Discontinued Reported Medications Benazepril Hcl* (Benazepril Hcl*) 40 Mg Tablet, 40 MG PO DAILY, #30 TAB 12/19/16 Discontinued Scripts Furosemide* (Furosemide*) 20 Mg Tablet, 20 MG PO DAILY, #60 TAB Prov:CRISTOBAL DYKES MD 12/21/16 Ofloxacin Otic (Ofloxacin Otic) 5 Ml Drops, 5 DROP RIGHT EAR BID for 7 Days, #1 BOTTLE Prov:KRANTHI BARNETT PA-C 12/24/16 Metoprolol Succinate* (Toprol XL*) 100 Mg Tab.sr.24h, 100 MG PO DAILY, #30 TAB Prov:CRISTOBAL DYKES MD 12/21/16 Follow-up Plan 1. Note new medications or adjustments made to current medications, digoxin, furosemide, spironolactone 2. Follow up with a Liver specialist as soon as possible 3. follow up with lab results in 2 weeks, please fern picker from records department Primary Care Provider Nikole Borrego MD Time spent on discharge: > 30 minutes Pending Labs Laboratory Tests Test 01/26/17 17:33 01/26/17 21:38 01/27/17 06:36 01/27/17 08:26 Bedside Glucose 296mg/dL (70-220) 85mg/dL (70-220) 184mg/dL (70-220) White Blood Count 6.310^3/ul (4.8-10.8) Red Blood Count 3.6710^6/ul (4.20-5.40) Hemoglobin 10.0g/dl (12.0-16.0) Hematocrit 29.4% (37.0-47.0) Mean Corpuscular Volume 80.1fl (82.0-101.0) Mean Corpuscular Hemoglobin 27.2pg (29.0-33.0) Mean Corpuscular Hemoglobin Concent 34.0g/dl (32.0-37.0) Red Cell Distribution Width 13.4% (11.5-14.5) Platelet Count 01301^3/UL (140-415) Mean Platelet Volume 10.2fl (7.4-10.4) Neutrophils % 72.0% (39.0-77.0) Lymphocytes % 17.7% (15.0-51.0) Monocytes % 7.7% (0.0-11.0) Eosinophils % 1.6% (0.0-7.0) Basophils % 0.8% (0.0-2.0) Nucleated Red Blood Cells % 0.0/100WBC (0.0-0.0) Neutrophils # 4.510^3/ul (1.6-7.5) Lymphocytes # 1.110^3/ul (0.8-2.9) Monocytes # 0.510^3/ul (0.3-0.9) Eosinophils # 0.110^3/ul (0.0-0.5) Basophils # 0.110^3/ul (0.0-0.1) Nucleated Red Blood Cells # 0.010^3/ul (0.0-0.0) Sodium Level 132mmol/L (135-144) Potassium Level 3.9mmol/L (3.5-5.1) Chloride Level 95mmol/L (97-110) Carbon Dioxide Level 28mmol/L (21-31) Anion Gap 13 (8-16) Blood Urea Nitrogen 16mg/dl (7-20) Creatinine 0.80mg/dl (0.44-1.00) Glucose Level 145mg/dl (70-220) Calcium Level 8.7mg/dl (8.4-10.2) Phosphorus Level 3.8mg/dl (2.5-4.9) Magnesium Level 1.6mg/dl (1.7-2.5) Test 01/27/17 12:00 Bedside Glucose 229mg/dL (70-220) LISA BARNETT Jan 27, 2017 13:08
== END 2017-01-27 16:35 | disposition home or self-care (01) | DRG 308 ==
LOC: E/R 12:45 → MS4 15:59
PROVIDERS: ADMIT Internal Medicine; ATTEND Internal Medicine
PROC: 0W9G3ZX Drainage of Peritoneal Cavity, Percutaneous Approach, Diagnostic (ICD-10-PCS; principal; 2017-01-25)
DX: I48.0 Paroxysmal atrial fibrillation (principal); I50.43 Acute on chronic combined systolic (congestive) and diastolic (congestive) heart failure; I42.9 Cardiomyopathy, unspecified; R18.8 Other ascites; E78.5 Hyperlipidemia, unspecified; I11.0 Hypertensive heart disease with heart failure; E11.9 Type 2 diabetes mellitus without complications; R14.0 Abdominal distension (gaseous); Z79.01 Long term (current) use of anticoagulants; Z86.73 Personal history of transient ischemic attack (TIA), and cerebral infarction without residual deficits
CPT/HCPCS: 36415; 71010; 71020; 76705; 80048; 80053; 80061; 82042; 82103; 82140; 82150; 82390; 82525; 82550; 82553; 82728; 82945; 82962; 83540; 83615; 83735; 83880; 83986; 84100; 84157; 84443; 84484; 85025; 85610; 85730; 86038; 86255; 86430; 86704; 86709; 86803; 87070; 87340; 89051; 93005; 93308; 96374; 96375; 97162; 97166; G0431; J1940; J0744; J1815; J2916; J3475; P9047

== ENCOUNTER 2018-01-18 07:50 | Emergency (ER) | END 2018-01-18 09:52 | disposition home or self-care (01) ==

== ENCOUNTER 2018-10-02 00:32 | Inpatient (IN) | payer OTHER ==
[~2018-10-02] VITALS: Ht 162.6 cm; Wt 71.0 kg
[~2018-10-02 00:32] MED LIST changes: +AMLO-147 PO; +APIX5TAB PO; -BENA40TA41 PO; +BUME1TAB PO; +CALC-662 PO; -CALC500T91 PO; +CALC600T24 PO; +DIGO125T PO; +FER325 PO; +FLUC100T PO; -FURO20TA3 PO; +GLIP10TA14 PO; -GLIP5TAB13 PO; +LAS20 PO; +LEVO250T9 PO; +MAGN250T10 PO; -METF-480 PO; +METF850T13 PO; +METO-335 PO; -METO-336 PO; +METO-429 PO; -OFLO5DRO7 RIGHT EAR; +PRAV40TA76 PO; +RAMI2.5C36 PO; -RIVA20TA5 PO; +SPIR25TA PO
[2018-10-02] MEDS ORDERED: DEXTROSE 5%-0.9% NACL 1,000 ML IV STA (00:53)
[2018-10-02] MEDS ORDERED: ACETAMINOPHEN 325 MG TAB PO PRN (02:30)
[2018-10-02] MEDS ORDERED: ONDANSETRON 4 MG INJ IV PRN ×2 (02:30→07:30)
[2018-10-02 06:20] VITALS: Ht 162.6 cm; Wt 71.0 kg
[2018-10-02] MEDS ORDERED: NACL 0.9% 3 ML SYG IV SCH (07:30)
[2018-10-02] MEDS: ALBUTEROL/IPRATROPIUM (NEB) 3 ML AMP HHN PRN ×2 (07:45→23:24)
[2018-10-02] MEDS ORDERED: FUROSEMIDE 20 MG TAB PO SCH (09:00)
[2018-10-02] MEDS ORDERED: VANCOMYCIN IV PER PHARMACY XX SCH (09:30)
[2018-10-02] MEDS ORDERED: FUROSEMIDE 40 MG INJ IV ONE (09:30)
[2018-10-02] MEDS ORDERED: CEFEPIME 1GM/50 ML (PMX) 50 ML IVPB SCH (09:30)
[2018-10-02] MEDS: MAGNESIUM OXIDE 400 MG TAB PO SCH (10:43)
[2018-10-02] MEDS: AMLODIPINE 10 MG TAB PO SCH (10:43)
[2018-10-02] MEDS: APIXABAN 5 MG TABLET PO SCH ×2 (10:44→22:09)
[2018-10-02] MEDS: METOPROLOL (XL) 25 MG TAB PO SCH (10:44)
[2018-10-02] MEDS: CALCIUM CARBONATE 1.25 GM TAB PO SCH (10:45)
[2018-10-02] MEDS: BENAZEPRIL 10 MG TAB PO SCH (10:45)
[2018-10-02] MEDS ORDERED: VANCOMYCIN 1.5 GM/NS 250 ML 250 ML IVPB ONE (11:00)
[2018-10-02] MEDS ORDERED: LIDOCAINE 1% (MPF) 5 ML VIAL ONE (16:12)
[2018-10-02 17:52] VITALS: BP 128/57; PULSE 87; RESP 18
[2018-10-02 19:57] VITALS: BP 113/58; PULSE 85; RESP 17
[2018-10-02] MEDS ORDERED: DEXTROSE 50% 50 ML SYRINGE IV PRN ×2 (21:30)
[2018-10-02] MEDS ORDERED: GLUCAGON 1 MG INJ IM PRN (21:30)
[2018-10-02] MEDS ORDERED: GLUCOSE GEL 15 GRAM TUBE PO PRN ×2 (21:30)
[2018-10-02] MEDS ORDERED: GLUCOSE GEL 15 GRAM TUBE BUCCAL PRN (21:30)
[2018-10-02] MEDS: ATORVASTATIN 10 MG TAB PO SCH (22:08)
[2018-10-02] MEDS: INSULIN ASPART [NOVOLOG] 3 ML PEN SC SCH (22:34)
[2018-10-03 01:11] VITALS: BP 131/72; PULSE 86; RESP 17
[2018-10-03] MEDS: ACCU-CHEK XX SCH (02:49)
[2018-10-03 04:10] VITALS: BP 134/76; PULSE 89; RESP 18
[2018-10-03 07:31] VITALS: BP 141/66; PULSE 76; RESP 20
[2018-10-03] MEDS: SOD CHLORIDE 0.9% 1,000 ML IV SCH (07:55)
[2018-10-03] MEDS: INSULIN ASPART [NOVOLOG] 3 ML PEN SC SCH ×6 (08:02→21:00)
[2018-10-03] MEDS: BENAZEPRIL 10 MG TAB PO SCH (08:42)
[2018-10-03] MEDS: APIXABAN 5 MG TABLET PO SCH ×2 (08:42→21:50)
[2018-10-03] MEDS: MAGNESIUM OXIDE 400 MG TAB PO SCH (08:42)
[2018-10-03] MEDS: CALCIUM CARBONATE 1.25 GM TAB PO SCH (08:42)
[2018-10-03] MEDS: METOPROLOL (XL) 25 MG TAB PO SCH (08:43)
[2018-10-03] MEDS: AMLODIPINE 10 MG TAB PO SCH (08:43)
[2018-10-03 11:07] VITALS: BP 123/56; PULSE 94; RESP 20
[2018-10-03] MEDS ORDERED: VANCOMYCIN 1.25 GM/NS 250 ML 250 ML IVPB SCH (12:00)
[2018-10-03] MEDS: INSULIN GLARGINE [LANTus] (100 UNITS/ML) SYG SC SCH (12:45)
[2018-10-03 15:16] VITALS: BP 110/61; PULSE 72; RESP 18
[2018-10-03 19:34] VITALS: BP 105/56; PULSE 83; RESP 17
[2018-10-03] MEDS: ATORVASTATIN 10 MG TAB PO SCH (21:50)
[2018-10-04] VITALS: BP 110/59; PULSE 80; RESP 17
[2018-10-04] MEDS: ALBUTEROL/IPRATROPIUM (NEB) 3 ML AMP HHN PRN (00:50)
[2018-10-04] MEDS: ACCU-CHEK XX SCH (02:00)
[2018-10-04] MEDS: SOD CHLORIDE 0.9% 1,000 ML IV SCH ×2 (02:54→23:30)
[2018-10-04 04:18] VITALS: BP 125/60; PULSE 88; RESP 17
[2018-10-04 07:31] VITALS: BP 125/82; PULSE 93; RESP 20
[2018-10-04] MEDS: INSULIN ASPART [NOVOLOG] 3 ML PEN SC SCH ×7 (07:55→21:00)
[2018-10-04] MEDS: INSULIN GLARGINE [LANTus] (100 UNITS/ML) SYG SC SCH (08:12)
[2018-10-04] MEDS: BENAZEPRIL 10 MG TAB PO SCH (08:29)
[2018-10-04] MEDS: CALCIUM CARBONATE 1.25 GM TAB PO SCH (08:29)
[2018-10-04] MEDS: MAGNESIUM OXIDE 400 MG TAB PO SCH (08:29)
[2018-10-04] MEDS: AMLODIPINE 10 MG TAB PO SCH (08:29)
[2018-10-04] MEDS: APIXABAN 5 MG TABLET PO SCH ×2 (08:29→21:20)
[2018-10-04] MEDS: METOPROLOL (XL) 25 MG TAB PO SCH (08:30)
[2018-10-04] MEDS ORDERED: LISINOPRIL 5 MG TAB PO SCH (09:00)
[2018-10-04] MEDS ORDERED: METOPROLOL 25 MG TAB PO SCH (09:00)
[2018-10-04] MEDS ORDERED: MAGNESIUM SULFATE 1 GM/D5W 100 ML IVPB ONE (11:00)
[2018-10-04 11:06] VITALS: BP 115/59; PULSE 86; RESP 20
[2018-10-04] MEDS: METOPROLOL 50 MG TAB PO SCH ×2 (12:30→21:21)
[2018-10-04 14:56] VITALS: BP 136/63; PULSE 84; RESP 22
[2018-10-04 20:00] VITALS: BP 122/87; PULSE 88; RESP 20
[2018-10-04] MEDS: ATORVASTATIN 10 MG TAB PO SCH (21:21)
[2018-10-05] VITALS: BP 127/62; PULSE 65; RESP 20
[2018-10-05] MEDS: ACCU-CHEK XX SCH (02:00)
[2018-10-05 04:00] VITALS: BP 128/59; PULSE 99; RESP 20
[2018-10-05 07:09] VITALS: BP 119/64; PULSE 59; RESP 20
[2018-10-05] MEDS: INSULIN ASPART [NOVOLOG] 3 ML PEN SC SCH ×5 (07:55→21:05)
[2018-10-05] MEDS: APIXABAN 5 MG TABLET PO SCH ×2 (08:16→21:00)
[2018-10-05] MEDS: CALCIUM CARBONATE 1.25 GM TAB PO SCH (08:16)
[2018-10-05] MEDS: MAGNESIUM OXIDE 400 MG TAB PO SCH (08:17)
[2018-10-05] MEDS: METOPROLOL 50 MG TAB PO SCH ×2 (08:19→21:00)
[2018-10-05] MEDS: BENAZEPRIL 10 MG TAB PO SCH (08:19)
[2018-10-05] MEDS: INSULIN GLARGINE [LANTus] (100 UNITS/ML) SYG SC SCH (08:25)
[2018-10-05] MEDS ORDERED: AMLODIPINE 10 MG TAB PO SCH (09:00)
[2018-10-05 11:07] VITALS: BP 102/70; PULSE 60; RESP 22
[2018-10-05] MEDS: LINAGLIPTIN 5 MG TABLET PO SCH (11:48)
[2018-10-05] MEDS: SPIRONOLACTONE 25 MG TAB PO SCH (11:48)
[2018-10-05] MEDS: BUMETANIDE 1 MG TAB PO SCH (12:40)
[2018-10-05] MEDS ORDERED: SOD FERRIC GLUC COMPLX 125 MG in SOD CHLORIDE 0.9% 100 ML IVPB ONE (13:00)
[2018-10-05 15:25] VITALS: BP 107/66; PULSE 80; RESP 22
[2018-10-05 20:00] VITALS: BP 136/60; PULSE 87; RESP 20
[2018-10-05] MEDS: ALBUTEROL/IPRATROPIUM (NEB) 3 ML AMP HHN PRN (20:34)
[2018-10-05] MEDS: ATORVASTATIN 10 MG TAB PO SCH (21:00)
[2018-10-05] MEDS ORDERED: BUMETANIDE 1 MG INJ IV ONE (21:30)
[2018-10-06] VITALS: BP 114/70; PULSE 80; RESP 19
[2018-10-06] MEDS: ACCU-CHEK XX SCH (01:37)
[2018-10-06 04:00] VITALS: BP 130/59; PULSE 87; RESP 19
[2018-10-06 07:29] VITALS: BP 119/62; PULSE 67; RESP 20
[2018-10-06] MEDS: INSULIN ASPART [NOVOLOG] 3 ML PEN SC SCH ×4 (07:53→20:24)
[2018-10-06] MEDS ORDERED: BUMETANIDE 1 MG INJ IV ONE (08:30)
[2018-10-06] MEDS: BENAZEPRIL 10 MG TAB PO SCH (08:46)
[2018-10-06] MEDS: CALCIUM CARBONATE 1.25 GM TAB PO SCH (08:46)
[2018-10-06] MEDS: SPIRONOLACTONE 25 MG TAB PO SCH (08:46)
[2018-10-06] MEDS: APIXABAN 5 MG TABLET PO SCH ×2 (08:46→20:17)
[2018-10-06] MEDS: LINAGLIPTIN 5 MG TABLET PO SCH (08:47)
[2018-10-06] MEDS: METOPROLOL 50 MG TAB PO SCH ×2 (08:47→20:17)
[2018-10-06] MEDS: MAGNESIUM OXIDE 400 MG TAB PO SCH (08:47)
[2018-10-06 11:07] VITALS: BP 102/60; PULSE 70; RESP 20
[2018-10-06] MEDS: SOD FERRIC GLUC COMPLX 125 MG in SOD CHLORIDE 0.9% 100 ML IVPB SCH (11:58)
[2018-10-06] MEDS: BUMETANIDE 1 MG TAB PO SCH ×2 (13:36→20:17)
[2018-10-06 15:32] VITALS: BP 123/70; PULSE 76; RESP 20
[2018-10-06 20:00] VITALS: BP 112/58; PULSE 63; RESP 20
[2018-10-06] MEDS: ATORVASTATIN 10 MG TAB PO SCH (20:17)
[2018-10-07] VITALS: BP 117/64; PULSE 78; RESP 18
[2018-10-07] MEDS: ACCU-CHEK XX SCH (02:01)
[2018-10-07 04:00] VITALS: BP 135/76; PULSE 70; RESP 18
[2018-10-07] MEDS: BUMETANIDE 1 MG TAB PO SCH (05:42)
[2018-10-07 07:07] VITALS: BP 128/69; PULSE 83; RESP 18
[2018-10-07] MEDS: INSULIN ASPART [NOVOLOG] 3 ML PEN SC SCH ×4 (07:55→21:15)
[2018-10-07] MEDS: SPIRONOLACTONE 25 MG TAB PO SCH (09:07)
[2018-10-07] MEDS: MAGNESIUM OXIDE 400 MG TAB PO SCH (09:07)
[2018-10-07] MEDS: APIXABAN 5 MG TABLET PO SCH ×2 (09:07→20:57)
[2018-10-07] MEDS: LINAGLIPTIN 5 MG TABLET PO SCH (09:07)
[2018-10-07] MEDS: CALCIUM CARBONATE 1.25 GM TAB PO SCH (09:07)
[2018-10-07] MEDS: BENAZEPRIL 10 MG TAB PO SCH (09:08)
[2018-10-07] MEDS: METOPROLOL 50 MG TAB PO SCH ×2 (09:08→20:58)
[2018-10-07] MEDS ORDERED: MAGNESIUM SULFATE 2 GM/50 ML 50 ML IVPB ONE (10:30)
[2018-10-07 11:19] VITALS: BP 132/68; PULSE 77; RESP 18
[2018-10-07] MEDS: SOD FERRIC GLUC COMPLX 125 MG in SOD CHLORIDE 0.9% 100 ML IVPB SCH (12:19)
[2018-10-07 15:30] VITALS: BP 116/55; PULSE 75; RESP 18
[2018-10-07] MEDS ORDERED: ACETAMINOPHEN 325 MG TAB PO PRN (16:00)
[2018-10-07] MEDS ORDERED: morphine 2 MG INJ IV PRN (16:00)
[2018-10-07 20:00] VITALS: BP 124/64; PULSE 62; RESP 18
[2018-10-07] MEDS: ATORVASTATIN 10 MG TAB PO SCH (20:57)
[2018-10-08] VITALS: BP 121/63; PULSE 69; RESP 19
[2018-10-08] MEDS: ACCU-CHEK XX SCH (02:39)
[2018-10-08 04:00] VITALS: BP 113/71; PULSE 74; RESP 18
[2018-10-08 07:30] VITALS: BP 112/59; PULSE 74; RESP 20
[2018-10-08] MEDS: INSULIN ASPART [NOVOLOG] 3 ML PEN SC SCH ×2 (07:42→11:41)
[2018-10-08] MEDS: LINAGLIPTIN 5 MG TABLET PO SCH (08:15)
[2018-10-08] MEDS: APIXABAN 5 MG TABLET PO SCH (08:15)
[2018-10-08] MEDS: SPIRONOLACTONE 25 MG TAB PO SCH (08:15)
[2018-10-08] MEDS: CALCIUM CARBONATE 1.25 GM TAB PO SCH (08:16)
[2018-10-08] MEDS: METOPROLOL 50 MG TAB PO SCH (08:16)
[2018-10-08] MEDS: MAGNESIUM OXIDE 400 MG TAB PO SCH (08:16)
[2018-10-08] MEDS: BENAZEPRIL 10 MG TAB PO SCH (08:16)
[2018-10-08] MEDS ORDERED: BUMETANIDE 1 MG TAB PO SCH (09:00)
[2018-10-08 11:18] VITALS: BP 118/65; PULSE 68; RESP 20
[2018-10-08] MEDS: SOD FERRIC GLUC COMPLX 125 MG in SOD CHLORIDE 0.9% 100 ML IVPB SCH (13:00)
[2018-10-08 15:43] VITALS: BP 135/62; PULSE 65; RESP 20
== END 2018-10-08 17:00 | disposition home health service (06) | DRG 637 ==
LOC: E/R 00:32 → TEL 02:28 → OBSVTOIN 05:35 → EDBEDREQ 08:02 → EDBEDREQSVC 08:02
PROVIDERS: ADMIT Internal Medicine; ATTEND Internal Medicine
PROC: 0W993ZZ Drainage of Right Pleural Cavity, Percutaneous Approach (ICD-10-PCS; principal; 2018-10-02)
DX: E11.649 Type 2 diabetes mellitus with hypoglycemia without coma (principal); I50.33 Acute on chronic diastolic (congestive) heart failure; J96.01 Acute respiratory failure with hypoxia; E87.1 Hypo-osmolality and hyponatremia; J90 Pleural effusion, not elsewhere classified; M80.88XA Other osteoporosis with current pathological fracture, vertebra(e), initial encounter for fracture; G92 Toxic encephalopathy; N17.9 Acute kidney failure, unspecified; I11.0 Hypertensive heart disease with heart failure; I48.2 Chronic atrial fibrillation; I27.20 Pulmonary hypertension, unspecified; I07.1 Rheumatic tricuspid insufficiency; K75.81 Nonalcoholic steatohepatitis (NASH); K74.60 Unspecified cirrhosis of liver; D63.8 Anemia in other chronic diseases classified elsewhere; E16.0 Drug-induced hypoglycemia without coma; I25.10 Atherosclerotic heart disease of native coronary artery without angina pectoris; E78.5 Hyperlipidemia, unspecified; I49.3 Ventricular premature depolarization; T38.3X5A Adverse effect of insulin and oral hypoglycemic [antidiabetic] drugs, initial encounter; Y92.019 Unspecified place in single-family (private) house as the place of occurrence of the external cause; Z79.4 Long term (current) use of insulin; Z79.02 Long term (current) use of antithrombotics/antiplatelets; Z86.73 Personal history of transient ischemic attack (TIA), and cerebral infarction without residual deficits
CPT/HCPCS: 36415; 36600; 71045; 71250; 76705; 76942; 80048; 80053; 81001; 81003; 82043; 82728; 82803; 82962; 83036; 83540; 83735; 83880; 83935; 84100; 84155; 84300; 84484; 85025; 85610; 93005; 93306; 94640; 94664; 97162; G0378; J0692; J1815; J2405; J2916; J3370; J3475; J7030; J7042